=== PATIENT | male | born 1965 | race Caucasian/White ===

== ENCOUNTER 2021-05-13 12:30 | Emergency (ER) | payer BC ==
[2021-05-13 12:37] VITALS: BP 130/82; PULSE 77; RESP 16; TEMP 98.4
--- NOTE | 2021-05-13 13:06 | XR ---
EXAMINATION TYPE: XR finger LT DATE OF EXAM: 05/13/2021 COMPARISON: NONE HISTORY: Pain and swelling after recent freezing injury. TECHNIQUE: 3 views left second finger. FINDINGS: Displaced acute vertical fracture through distal portion of the second distal phalanx with 3 mm palmar surface distraction and approximately 3 to 4 mm distal ossific fragment. [id number] diffuse soft tissue swelling. Joint spaces are preserved. Incidental distal aspect third distal phalanx shows punctate densities favored within the nailbed but additional radial 1 mm punctate subcutaneous foreign body at level of the third DIP joint. IMPRESSION: As above.
[2021-05-13] MEDS ORDERED: ceFAZolin 1,000 MG VIAL (IM USE) IM STA (13:35)
--- NOTE | 2021-05-13 13:37 | ED ---
Upper Extremity HPI - General Chief Complaint: Extremity Injury, Upper Stated Complaint: [facility] - infected finger Time Seen by Provider: 05/13/21 12:38 Source: patient, RN notes reviewed Mode of arrival: ambulatory Limitations: no limitations - History of Present Illness Initial Comments: This 55-year-old male presents emergency department to complaint infection to his left hand index finger. This is been ongoing last 3 weeks was placed on Bactrim initially in which he states he responded very well with states never fully resolved and he did not initially follow-up. Patient follow-up was placed on clindamycin on Tuesday he's taking only a day and a half at doses and was seen again today sent in for possible IV antibiotics. Patient states that it's not worsening has no increasing pain he denies any trauma any time states his chronic deformities of his finger. - Related Data Home Medications Medication Instructions Recorded Confirmed No Known Home Medications 06/29/16 06/29/16 Allergies Allergy/AdvReac Type Severity Reaction Status Date / Time No Known Allergies Allergy Verified 05/13/21 12:37 Review of Systems ROS Statement: Those systems with pertinent positive or pertinent negative responses have been documented in the HPI. ROS Other: All systems not noted in ROS Statement are negative. Past Medical History Past Medical History: Pneumonia Additional Past Medical History / Comment(s): past hx. pneumonia several yrs. ago History of Any Multi-Drug Resistant Organisms: None Reported Additional Past Surgical History / Comment(s): Surgery to right knee. Past Anesthesia/Blood Transfusion Reactions: No Reported Reaction Past Psychological History: No Psychological Hx Reported Smoking Status: Current every day smoker Past Alcohol Use History: Occasional Past Drug Use History: Marijuana - Past Family History Father Family Medical History: No Reported History Mother Family Medical History: No Reported History General Exam Limitations: no limitations General appearance: alert, in no apparent distress Head exam: Present: atraumatic, normocephalic, normal inspection Respiratory exam: Present: normal lung sounds bilaterally. Absent: respiratory distress, wheezes, rales, rhonchi, stridor Cardiovascular Exam: Present: regular rate, normal rhythm, normal heart sounds. Absent: systolic murmur, diastolic murmur, rubs, gallop, clicks Extremities exam: Present: other (Left hand index finger there is chronic deformity there is no definite DIP joints there is a nail which is deformed. There is mild erythema, no tenderness neurovascular intact.) Course Vital Signs 05/13/21 12:33 Temperature 98.4 F Pulse Rate 77 Respiratory 16 Rate Blood Pressure 130/82 O2 Sat by Pulse 98 Oximetry Medical Decision Making - Medical Decision Making X-ray does not show any definite osteomyelitis. Patient's x-ray read as acute fracture though he had no trauma and patient states this is chronic deformity. Patient will be given Ancef, continuation of clindamycin 4 times daily with close follow-up. Disposition Clinical Impression: Paronychia of left index finger, Cellulitis of left index finger Disposition: HOME SELF-CARE Condition: Stable Instructions (If sedation given, give patient instructions): Cellulitis (ED) Additional Instructions: Please return to the Emergency Department if symptoms worsen or any other concerns. Is patient prescribed a controlled substance at d/c from ED?: No Referrals: None,Stated [Primary Care Provider] - 1-2 days Time of Disposition: 13:37
== END 2021-05-13 14:28 | disposition home or self-care (01) ==
LOC: EC 12:30
DX: L03.012 Cellulitis of left finger (principal); F17.200 Nicotine dependence, unspecified, uncomplicated; F12.90 Cannabis use, unspecified, uncomplicated
CPT/HCPCS: 99283; 96372; 73140; J0690

== ENCOUNTER 2023-08-17 08:55 | Emergency (ER) | payer BC ==
--- NOTE | 2023-08-17 09:26 | ED ---
General Adult HPI - General Stated complaint: R Hand Swelling Time Seen by Provider: 08/17/23 09:25 Source: patient, RN notes reviewed Mode of arrival: ambulatory Limitations: no limitations - History of Present Illness Initial comments: 57-year-old male presents emergency Department chief complaint of right hand infection. Patient states he cut his hand with a knife while he was cutting a deer. Patient states he was infection several weeks he states is more swollen - Related Data Home Medications Medication Instructions Recorded Confirmed clindamycin HCL [Clindamycin HCl] 300 mg PO Q6H 05/13/21 05/13/21 Previous Rx's Medication Instructions Recorded clindamycin HCL 300 mg PO QID #40 cap 08/17/23 Allergies Allergy/AdvReac Type Severity Reaction Status Date / Time No Known Allergies Allergy Verified 08/17/23 09:26 Review of Systems ROS Statement: Those systems with pertinent positive or pertinent negative responses have been documented in the HPI. ROS Other: All systems not noted in ROS Statement are negative. Past Medical History Past Medical History: Pneumonia Additional Past Medical History / Comment(s): past hx. pneumonia several yrs. ago History of Any Multi-Drug Resistant Organisms: None Reported Additional Past Surgical History / Comment(s): Surgery to right knee. Past Anesthesia/Blood Transfusion Reactions: No Reported Reaction Past Psychological History: No Psychological Hx Reported Smoking Status: Current every day smoker Past Alcohol Use History: Occasional Past Drug Use History: Marijuana - Past Family History Father Family Medical History: No Reported History Mother Family Medical History: No Reported History General Exam - General Exam Comments Initial Comments: Visual Physical Exam Vital signs reviewed General: Well-appearing, nontoxic, no acute distress. Head: Normocephalic, atraumatic Eyes: PERRLA, EOMI ENT: Airway patent Chest: Nonlabored breathing Skin: No visual rash, normal skin tone Neuro: Alert and oriented 3 Musculoskeletal: No gross abnormalities General appearance: alert, in no apparent distress Head exam: Present: atraumatic, normocephalic, normal inspection Respiratory exam: Present: normal lung sounds bilaterally. Absent: respiratory distress, wheezes, rales, rhonchi, stridor Cardiovascular Exam: Present: regular rate, normal rhythm, normal heart sounds. Absent: systolic murmur, diastolic murmur, rubs, gallop, clicks Extremities exam: Present: other (right hand swelling, there is a cut on 4th digit, full range of motion all digits neurovascular intact there is chronic deformities of the distal tips.) Course Vital Signs 08/17/23 08/17/23 09:23 12:59 Temperature 98 F 100.5 F H Pulse Rate 70 78 Respiratory 18 18 Rate Blood Pressure 116/69 143/83 O2 Sat by Pulse 98 96 Oximetry Medical Decision Making - Medical Decision Making I completed the quick note portion of this chart signed Carlyle Askew PA-C Was pt. sent in by a medical professional or institution (KADY Garibay, PAPER BAG MACHINE OPERATOR, urgent care, hospital, or snf...) When possible be specific @ -No Did you speak to anyone other than the patient for history (EMS, parent, family, police, friend...)? What history was obtained from this source @ -No Did you review nursing and triage notes (agree or disagree)? Why? @ -I reviewed and agree with nursing and triage notes Were old charts reviewed (outside hosp., previous admission, EMS record, old EKG, old radiological studies, urgent care reports/EKG's, snf records)? Report findings @ -No old charts were reviewed Differential Diagnosis (chest pain, altered mental status, abdominal pain women, abdominal pain men, vaginal bleeding, weakness, fever, dyspnea, syncope, headache, dizziness, GI bleed, back pain, seizure, CVA, palpatations, mental health, musculoskeletal)? @ -and cellulitis, laceration, flexor tendons cellulitis EKG interpreted by me (3pts min.). @ -none X-rays interpreted by me (1pt min.). @ -x-ray right hand showing soft tissue swelling no foreign body or bony errosion CT interpreted by me (1pt min.). @ -None done U/S interpreted by me (1pt. min.). @ -None done What testing was considered but not performed or refused? (CT, X-rays, U/S, labs)? Why? @ -None What meds were considered but not given or refused? Why? @ -None Did you discuss the management of the patient with other professionals (professionals i.e. KADY Garibay, PAPER BAG MACHINE OPERATOR, lab, RT, psych nurse, social secretary, gear and spline grinder, teacher, loan officer assistant, child welfare caseworker)? Give summary @ -No Was smoking cessation discussed for >3mins.? @ -No Was critical care preformed (if so, how long)? @ -No Were there social determinants of health that impacted care today? How? (Homelessness, low income, unemployed, alcoholism, drug addiction, transportation, low edu. Level, literacy, decrease access to med. care, longterm, rehab)? @ -No Was there de-escalation of care discussed even if they declined (Discuss DNR or withdrawal of care, Hospice)? DNR status @ -No What co-morbidities impacted this encounter? (DM, HTN, Smoking, COPD, CAD, Cancer, CVA, ARF, Chemo, Hep., AIDS, mental health diagnosis, sleep apnea, morbid obesity)? @ -None Was patient admitted / discharged? Hospital course, mention meds given and route, prescriptions, significant lab abnormalities, going to OR and other pertinent info. @ -discharge patient was offered admission patient feels comfortable with discharged with oral antibiotics and close follow-up return parameters were discussed. Undiagnosed new problem with uncertain prognosis? @ -No Drug Therapy requiring intensive monitoring for toxicity (Heparin, Nitro, Insulin, Cardizem)? @ -No Were any procedures done? @ -No Diagnosis/symptom? @ -right hand cellulitis] Acute, or Chronic, or Acute on Chronic? @ -acute Uncomplicated (without systemic symptoms) or Complicated (systemic symptoms)? @ -[uncomplicated Side effects of treatment? @ -No Exacerbation, Progression, or Severe Exacerbation? @ -No Poses a threat to life or bodily function? How? (Chest pain, [place], [place], pneumonia, PE, COPD, DKA, ARF, appy, cholecystitis, CVA, Diverticulitis, Homicidal, Suicidal, threat to staff... and all critical care pts) @ -No - Lab Data Result diagrams: 08/17/23 09:08/17/23 09:27 Lab Results 08/17/23 08/17/23 08/17/23 Range/Units : 09: 09: WBC 16.2 H (3.8-10.6) k/uL RBC 4.49 (4.30-5.90) m/uL Hgb 14.2 (13.0-17.5) gm/dL Hct 43.1 (39.0-53.0) % MCV 95.9 (80.0-100.0) fL MCH 31.6 (25.0-35.0) pg MCHC 33.0 (31.0-37.0) g/dL RDW 12.8 (11.5-15.5) % Plt Count 294 (150-450) k/uL MPV 7.7 Neutrophils % 94 % Lymphocytes % 3 % Monocytes % 3 % Eosinophils % 0 % Basophils % 0 % Neutrophils # 15.2 H (1.3-7.7) k/uL Lymphocytes # 0.4 L (1.0-4.8) k/uL Monocytes # 0.5 (0-1.0) k/uL Eosinophils # 0.1 (0-0.7) k/uL Basophils # 0.0 (0-0.2) k/uL Sodium 138 (137-145) mmol/L Potassium 4.3 (3.5-5.1) mmol/L Chloride 102 (98-107) mmol/L Carbon Dioxide 22 (22-30) mmol/L Anion Gap 14 mmol/L BUN 14 (9-20) mg/dL Creatinine 0.61 L (0.66-1.25) mg/dL Est GFR (CKD-EPI)AfAm >90 (>60 ml/min/1.73 sqM) Est GFR (CKD-EPI)NonAf >90 (>60 ml/min/1.73 sqM) Glucose 119 H (74-99) mg/dL Plasma Lactic Acid Kt 1.7 (0.7-2.0) mmol/L Calcium 9.6 (8.4-10.2) mg/dL Total Bilirubin 1.1 (0.2-1.3) mg/dL AST 24 (17-59) U/L ALT 18 (4-49) U/L Alkaline Phosphatase 67 (38-126) U/L C-Reactive Protein 4.5 H (<1.0) mg/dL Total Protein 7.0 (6.3-8.2) g/dL Albumin 4.1 (3.5-5.0) g/dL Disposition Clinical Impression: Cellulitis of right hand Disposition: HOME SELF-CARE Condition: Stable Instructions (If sedation given, give patient instructions): Cellulitis (ED) Additional Instructions: Please return to the Emergency Department if symptoms worsen or any other concerns. Prescriptions: clindamycin HCL 300 mg PO QID #40 cap Is patient prescribed a controlled substance at d/c from ED?: No Referrals: None,Stated [Primary Care Provider] - 1-2 days Time of Disposition: 11:24
[2023-08-17 09:40] VITALS: RESP 18
--- NOTE | 2023-08-17 09:57 | XR ---
EXAMINATION TYPE: XR hand complete RT DATE OF EXAM: 08/17/2023 9:49 AM CLINICAL INDICATION:Male, 57 years old with history of pain; [facility] COMPARISON: None TECHNIQUE: XR hand complete RT Frontal, lateral and oblique views were obtained. FINDINGS: Normal alignment of the visualized joints. No acute osseous pathology is identified. Soft tissue edema throughout the hand. No radiopaque foreign bodies. IMPRESSION: Soft tissue swelling without acute osseous pathology. Correlate for cellulitis.
[2023-08-17 10:12] LABS: Basophils % (A) 0 %; Eosinophils # (A) 0.1 k/uL (0-0.7); Eosinophils % (A) 0 %; HCT 43.1 % (39.0-53.0); HGB 14.2 gm/dL (13.0-17.5); Lymphocytes # (A) 0.4 k/uL (1.0-4.8); Lymphocytes % (A) 3 %; MCH 31.6 pg (25.0-35.0); MCV 95.9 fL (80.0-100.0); Mean Platelet Volume 7.7; Monocytes # (A) 0.5 k/uL (0-1.0); Monocytes % (A) 3 %; Neutrophils # (A) 15.2 k/uL (1.3-7.7); Neutrophils % (A) 94 %; Platelet Count 294 k/uL (150-450); RBC 4.49 m/uL (4.30-5.90); RDW 12.8 % (11.5-15.5); WBC 16.2 k/uL (3.8-10.6)
[2023-08-17 10:27] LABS: ALT 18 U/L (4-49); AST 24 U/L (17-59); African American GFR (CKD) >90 (>60 ml/min/1.73 sqM); Albumin 4.1 g/dL (3.5-5.0); Alkaline Phosphatase 67 U/L (38-126); Anion Gap 14 mmol/L; Blood Urea Nitrogen 14 mg/dL (9-20); Calcium 9.6 mg/dL (8.4-10.2); Carbon Dioxide 22 mmol/L (22-30); Chloride 102 mmol/L (98-107); Glucose 119 mg/dL (74-99); Non-African American GFR(CKD) >90 (>60 ml/min/1.73 sqM); Potassium 4.3 mmol/L (3.5-5.1); Sodium 138 mmol/L (137-145); Total Bilirubin 1.1 mg/dL (0.2-1.3)
[2023-08-17 10:42] LABS: C Reactive Protein 4.5 mg/dL (<1.0)
[2023-08-17] MEDS ORDERED: KETOROLAC 15 MG/ML 1 ML VIAL IVP STA (10:48)
[2023-08-17 13:05] VITALS: BP 143/83; PULSE 78; TEMP 100.5
== END 2023-08-17 13:05 | disposition home or self-care (01) ==
LOC: EC 08:55
DX: L03.113 Cellulitis of right upper limb (principal); F12.90 Cannabis use, unspecified, uncomplicated; F17.200 Nicotine dependence, unspecified, uncomplicated
CPT/HCPCS: 36415; 80053; 83605; 85025; 86140; 73130; 99284; 96365; 96375; J0690; J1885

== ENCOUNTER 2023-08-18 06:52 | Inpatient (IN) | payer BC ==
[2023-08-18] MEDS ORDERED: VANCOMYCIN IV PER PHARMACY 1 EACH MISC MISCELLANE PRN (11:47)
[2023-08-18] MEDS ORDERED: VANCOMYCIN 1,250 MG in SODIUM CHLORIDE 0.9% 250 ML IVPB STA (11:50)
--- NOTE | 2023-08-18 12:15 | ED ---
General Adult HPI - General Chief complaint: Skin/Abscess/Foreign Body Stated complaint: Right Hand Infection and swelling Time Seen by Provider: 08/18/23 11:14 Source: patient, RN notes reviewed Mode of arrival: ambulatory Limitations: no limitations - History of Present Illness Initial comments: 57-year-old male with no significant past medical history presents the emergency department with a chief complaint of right hand swelling. Patient reports that he was seen and evaluated on 08/1003/10/2023 at this facility. Given IV antibiotics and had laboratory studies which were unremarkable. He was discharged. He reports overnight worsening swelling and redness to his right hand that is migrating up his right wrist. He denies any trauma or injury. Denies any weakness, numbness tingling. He reports symptoms started after he attempted to go hunting. - Related Data Previous Rx's Medication Instructions Recorded clindamycin HCL 300 mg PO QID #40 cap 08/17/23 Allergies Allergy/AdvReac Type Severity Reaction Status Date / Time No Known Allergies Allergy Verified 08/18/23 13:24 Review of Systems ROS Statement: Those systems with pertinent positive or pertinent negative responses have been documented in the HPI. ROS Other: All systems not noted in ROS Statement are negative. Past Medical History Past Medical History: Pneumonia Additional Past Medical History / Comment(s): past hx. pneumonia several yrs. ago History of Any Multi-Drug Resistant Organisms: None Reported Additional Past Surgical History / Comment(s): Surgery to right knee. Past Anesthesia/Blood Transfusion Reactions: No Reported Reaction Past Psychological History: No Psychological Hx Reported Smoking Status: Current every day smoker Past Alcohol Use History: Occasional Past Drug Use History: Marijuana - Past Family History Father Family Medical History: No Reported History Mother Family Medical History: No Reported History General Exam - General Exam Comments Initial Comments: General: Alert, in no acute distress Head: atraumatic normocephalic. Eyes PERRL, EOMI intact, mucous membranes moist Respiratory: Lungs clear to auscultation bilaterally Cardiovascular: Heart rate regular rate and rhythm Abdominal: Soft without guarding or rebound Extremities: Normal inspection with full range of motion and normal capillary refill, right hand with generalized edema and erythema. Warm to touch. 2+ radial pulses. Limited range of motion secondary to swelling no crepitus Neuroogic: alert and oriented 3, CN II-XII intact, able to ambulate with steady gait Skin: warm dry and intact with normal color Limitations: no limitations Course Vital Signs 08/18/23 08/18/23 06:59 13:40 Temperature 98.3 F 98.1 F Pulse Rate 112 H 70 Respiratory 20 18 Rate Blood Pressure 150/73 101/63 O2 Sat by Pulse 98 97 Oximetry - Reevaluation(s) Reevaluation #1: 08/18/23 11:45 patient reevaluated in the waiting room. Patient agreeable for additional lab work and imaging. Patient aware need for IV antibiotics. Agreeable with this plan. Reevaluation #2: 08/18/23 13:01 Reevaluated and updated on results. Agreeable with the plan for admission. Reevaluation #3: 08/18/23 13:09 This is discussed with Dr. richardson, EMS who agrees and accepts the patient. He recommends switching Zosyn to cefepime. Medical Decision Making - Medical Decision Making Was pt. sent in by a medical professional or institution (, PA, STEREOPTICIAN, urgent care, hospital, or [facility]...) When possible be specific @ -[No] Did you speak to anyone other than the patient for history (EMS, parent, family, police, friend...)? What history was obtained from this source @ -[No] Did you review nursing and triage notes (agree or disagree)? Why? @ -[I reviewed and agree with nursing and triage notes] Were old charts reviewed (outside hosp., previous admission, EMS record, old EKG, old radiological studies, urgent care reports/EKG's, [facility] records)? Report findings @ -[No old charts were reviewed] Differential Diagnosis (chest pain, altered mental status, abdominal pain women, abdominal pain men, vaginal bleeding, weakness, fever, dyspnea, syncope, headache, dizziness, GI bleed, back pain, seizure, CVA, palpatations, mental health, musculoskeletal)? @ -[not applicable] EKG interpreted by me (3pts min.). @ -[As above] X-rays interpreted by me (1pt min.). @ Right hand x-ray did not reveal any free air or fracture dislocation CT interpreted by me (1pt min.). @ -[None done] U/S interpreted by me (1pt. min.). @ -[None done] What testing was considered but not performed or refused? (CT, X-rays, U/S, labs)? Why? @ -[None] What meds were considered but not given or refused? Why? @ -[None] Did you discuss the management of the patient with other professionals (professionals i.e. , PA, STEREOPTICIAN, lab, RT, psych nurse, social sciences instructor, driver/refuse collector, teacher, air control/anti air warfare officer, test case developer)? Give summary @ -Case discussed with Dr. Richardson who agrees and accepts the patient for admission with consult to Hand and Infectious disease. Was smoking cessation discussed for >3mins.? @ -[No] Was critical care preformed (if so, how long)? @ -[No] Were there social determinants of health that impacted care today? How? (Homelessness, low income, unemployed, alcoholism, drug addiction, transportation, low edu. Level, literacy, decrease access to med. care, snf, rehab)? @ -[No] Was there de-escalation of care discussed even if they declined (Discuss DNR or withdrawal of care, Hospice)? DNR status @ -[No] What co-morbidities impacted this encounter? (DM, HTN, Smoking, COPD, CAD, Cancer, CVA, ARF, Chemo, Hep., AIDS, mental health diagnosis, sleep apnea, morbid obesity)? @ -[None] Was patient admitted / discharged? Hospital course, mention meds given and route, prescriptions, significant lab abnormalities, going to OR and other pertinent info. @ -Herald. This is a 57-year-old male who presents the emergency department with a chief complaint of right hand swelling. Patient had a thorough history and physical exam performed. Patient is afebrile. Right hand with generalized edema, erythema that is warm to the touch. Limited range of motion secondary to swelling. There is slight erythema migrating up to right wrist. Patient had laboratory studies which revealed WBC 21.8, hemoglobin 12.7 lactic acid 1.9. Blood cultures are pending. Patient updated on results and agreeable with the plan for admission. He willl be started on vancomycin and cefepime per Dr. richardson. Consult was made to Dr. Arellano and Dr. Epperson, infectious disease. Case is discussed with Dr. Pizano, ED attending who agrees with POC. Undiagnosed new problem with uncertain prognosis? @ -[No] Drug Therapy requiring intensive monitoring for toxicity (Heparin, Nitro, Insulin, Cardizem)? @ -[No] Were any procedures done? @ -[No] Diagnosis/symptom? @ -Right hand swelling Acute, or Chronic, or Acute on Chronic? @ -[Acute Uncomplicated (without systemic symptoms) or Complicated (systemic symptoms)? @ -Complicated Side effects of treatment? @ -[No] Exacerbation, Progression, or Severe Exacerbation? @ -[No] Poses a threat to life or bodily function? How? (Chest pain, [place], [place], pneumonia, PE, COPD, DKA, ARF, appy, cholecystitis, CVA, Diverticulitis, Homicidal, Suicidal, threat to staff... and all critical care pts) @ -Yes, Cellulitis - Lab Data Result diagrams: 08/18/23 12:16 08/18/23 12:16 Lab Results 08/18/23 08/18/23 08/18/23 Range/Units 12:16 12:16 12:16 WBC 21.8 H (3.8-10.6) k/uL RBC 3.92 L (4.30-5.90) m/uL Hgb 12.7 L (13.0-17.5) gm/dL Hct 37.4 L (39.0-53.0) % MCV 95.2 (80.0-100.0) fL MCH 32.3 (25.0-35.0) pg MCHC 33.9 (31.0-37.0) g/dL RDW 12.9 (11.5-15.5) % Plt Count 225 (150-450) k/uL MPV 7.4 Neutrophils % 95 % Lymphocytes % 3 % Monocytes % 1 % Eosinophils % 1 % Basophils % 0 % Neutrophils # 20.6 H (1.3-7.7) k/uL Lymphocytes # 0.6 L (1.0-4.8) k/uL Monocytes # 0.3 (0-1.0) k/uL Eosinophils # 0.2 (0-0.7) k/uL Basophils # 0.0 (0-0.2) k/uL Sodium 136 L (137-145) mmol/L Potassium 3.8 (3.5-5.1) mmol/L Chloride 100 (98-107) mmol/L Carbon Dioxide 23 (22-30) mmol/L Anion Gap 13 mmol/L BUN 19 (9-20) mg/dL Creatinine 0.63 L (0.66-1.25) mg/dL Est GFR (CKD-EPI)AfAm >90 (>60 ml/min/1.73 sqM) Est GFR (CKD-EPI)NonAf >90 (>60 ml/min/1.73 sqM) Glucose 162 H (74-99) mg/dL Plasma Lactic Acid Kt 1.9 (0.7-2.0) mmol/L Calcium 10.0 (8.4-10.2) mg/dL Total Bilirubin 1.1 (0.2-1.3) mg/dL AST 24 (17-59) U/L ALT 20 (4-49) U/L Alkaline Phosphatase 65 (38-126) U/L Total Protein 6.7 (6.3-8.2) g/dL Albumin 3.9 (3.5-5.0) g/dL Disposition Clinical Impression: Cellulitis of right hand Disposition: ADMITTED IP TO THIS HOSP Condition: Fair Is patient prescribed a controlled substance at d/c from ED?: No Time of Disposition: 13:06
--- NOTE | 2023-08-18 12:33 | XR ---
EXAMINATION TYPE: XR hand complete RT, XR wrist complete RT DATE OF EXAM: 08/18/2023 12:16 PM CLINICAL INDICATION:Male, 57 years old with history of cellulitis; COMPARISON: 08/17/2023. TECHNIQUE: XR hand complete RT, XR wrist complete RT Frontal, lateral and oblique views were obtained . FINDINGS/IMPRESSION: Soft tissue swelling without evidence for radiopaque foreign body or fracture. Correlate for sinusiti s. No osseous erosion. Findings not definitely changed from one day prior.
[2023-08-18 12:39] LABS: Basophils % (A) 0 %; Eosinophils # (A) 0.2 k/uL (0-0.7); Eosinophils % (A) 1 %; HCT 37.4 % (39.0-53.0); HGB 12.7 gm/dL (13.0-17.5); Lymphocytes # (A) 0.6 k/uL (1.0-4.8); Lymphocytes % (A) 3 %; MCH 32.3 pg (25.0-35.0); MCHC 33.9 g/dL (31.0-37.0); MCV 95.2 fL (80.0-100.0); Mean Platelet Volume 7.4; Monocytes # (A) 0.3 k/uL (0-1.0); Monocytes % (A) 1 %; Neutrophils # (A) 20.6 k/uL (1.3-7.7); Neutrophils % (A) 95 %; Platelet Count 225 k/uL (150-450); RBC 3.92 m/uL (4.30-5.90); RDW 12.9 % (11.5-15.5); WBC 21.8 k/uL (3.8-10.6)
[2023-08-18 12:50] LABS: ALT 20 U/L (4-49); AST 24 U/L (17-59); African American GFR (CKD) >90 (>60 ml/min/1.73 sqM); Albumin 3.9 g/dL (3.5-5.0); Alkaline Phosphatase 65 U/L (38-126); Anion Gap 13 mmol/L; Blood Urea Nitrogen 19 mg/dL (9-20); Carbon Dioxide 23 mmol/L (22-30); Chloride 100 mmol/L (98-107); Glucose 162 mg/dL (74-99); Non-African American GFR(CKD) >90 (>60 ml/min/1.73 sqM); Potassium 3.8 mmol/L (3.5-5.1); Sodium 136 mmol/L (137-145); Total Bilirubin 1.1 mg/dL (0.2-1.3); Total Protein 6.7 g/dL (6.3-8.2)
[2023-08-18] MEDS ORDERED: PIPERACILLIN-TAZOBACTAM 3.375 GM in SODIUM CHLORIDE 0.9% 100 ML IVPB STA (12:56)
[2023-08-18] MEDS ORDERED: CEFEPIME 2 GM in SODIUM CHLORIDE 0.9% 100 ML IVPB STA (13:09)
[2023-08-18] MEDS ORDERED: NALOXONE 0.4 MG/ML 1 ML VIAL IV PRN (13:10)
[2023-08-18] MEDS: SODIUM CHLORIDE 0.9% 1,000 ML IV SCH (13:18)
[2023-08-18] MEDS: KETOROLAC 15 MG/ML 1 ML VIAL IVP PRN (15:28)
--- NOTE | 2023-08-18 17:33 | P.HPIM ---
History of Present Illness This is a pleasant 57 years old male with no significant past medical history and he does not follow with PCP. He presents with redness and swelling of his right hand. Patient says that it happens about 2 weeks ago when he injured his right middle finger while he was climbing a tree, he thinks it was locally infected and he popped up couple times but over the last 2 days the swelling and redness was getting more severe and more progressive so he decided to come to the hospital. It's mildly painful right and has tried closed wound on the plantar surface of the right middle finger. No purulent discharge or discoloration. He has limitation of flexing his right hand fingers partly because of the infection and swelling. He denies any other specific complaints, no chest pain or dyspnea. He lives nicotine and he was counseled about within the nicotine patch but he declines. He drinks alcohol occasionally and no drugs. His vitals are stable Labs reviewed he has worsening leukocytosis 16,000 up to 21,000 today. Hemoglobin 12.7. Liver enzymes were unremarkable Right hand and wrist x-ray showing soft tissue swelling with no fracture. Patient started with IV vancomycin and cefepime with orthopedic and infectious disease team were consulted from emergency room Review of Systems Review of systems CONSTITUTIONAL: No fever, no malaise, no fatigue. HEENT: No recent visual problems or hearing problems. Denied any sore throat. CARDIOVASCULAR: No orthopnea, PND, no palpitations, no syncope. PULMONARY: No shortness of breath, no cough, no hemoptysis. GASTROINTESTINAL: No diarrhea, no nausea, no vomiting, no abdominal pain. Normoactive bowel sounds. NEUROLOGICAL: No headaches, no weakness, no numbness. HEMATOLOGICAL: Denies any bleeding or petechiae. GENITOURINARY: Denies any burning micturition, frequency, or urgency. MUSCULOSKELETAL/RHEUMATOLOGICAL: Denies any joint pain, swelling, or any muscle pain. ENDOCRINE: Denies any polyuria or polydipsia. Past Medical History Past Medical History: Pneumonia Additional Past Medical History / Comment(s): past hx. pneumonia several yrs. ago History of Any Multi-Drug Resistant Organisms: None Reported Additional Past Surgical History / Comment(s): Surgery to right knee. Past Anesthesia/Blood Transfusion Reactions: No Reported Reaction Past Psychological History: No Psychological Hx Reported Smoking Status: Current every day smoker Past Alcohol Use History: Occasional Past Drug Use History: Marijuana - Past Family History Father Family Medical History: No Reported History Mother Family Medical History: No Reported History Medications and Allergies Home Medications Medication Instructions Recorded Confirmed Type clindamycin HCL 300 mg PO QID #40 cap 08/17/23 08/18/23 Rx Allergies Allergy/AdvReac Type Severity Reaction Status Date / Time No Known Allergies Allergy Verified 08/18/23 13:24 Physical Exam Vitals: Vital Signs Temp Pulse Resp BP Pulse Ox 08/18/23 13:40 98.1 F 70 18 101/63 97 08/18/23 06:59 98.3 F 112 H 20 150/73 98 Intake and Output 08/17/23 08/18/23 08/18/23 22:59 06:59 14:59 Other: Weight 70.307 kg GENERAL: The patient is alert and oriented x3, not in any acute distress. Well developed, well nourished. HEENT: Pupils are round and equally reacting to light. EOMI. No scleral icterus. No conjunctival pallor. Normocephalic, atraumatic. No pharyngeal erythema. No thyromegaly. CARDIOVASCULAR: S1 and S2 present. No murmurs, rubs, or gallops. PULMONARY: Chest is clear to auscultation, no wheezing , no crackles. ABDOMEN: Soft, nontender, nondistended, normoactive bowel sounds. No palpable organomegaly. MUSCULOSKELETAL: No joint swelling or deformity. -EXTREMITIES: No cyanosis, clubbing, or pedal edema. Right hand and right forearm swollen red and tender with limitation of movement of the fingers NEUROLOGICAL: Gross neurological examination did not reveal any focal deficits. SKIN: No rashes. no petechiae. Results CBC & Chem 7: 08/18/23 12:16 08/18/23 12:16 Labs: Abnormal Lab Results - Last 24 Hours (Table) 08/18/23 08/18/23 Range/Units 12:16 12:16 WBC 21.8 H (3.8-10.6) k/uL RBC 3.92 L (4.30-5.90) m/uL Hgb 12.7 L (13.0-17.5) gm/dL Hct 37.4 L (39.0-53.0) % Neutrophils # 20.6 H (1.3-7.7) k/uL Lymphocytes # 0.6 L (1.0-4.8) k/uL Sodium 136 L (137-145) mmol/L Creatinine 0.63 L (0.66-1.25) mg/dL Glucose 162 H (74-99) mg/dL Assessment and Plan Assessment: Right hand and forearm cellulitis Nicotine dependence Plan: Continue with IV antibiotic, current of vancomycin and cefepime Follow-up blood culture results Infectious disease consult Orthopedic team consult Labs and medication were reviewed.. Continue same treatment. Continue with symptomatic treatment. Resume home medication. Monitor labs and vitals. DVT and GI prophylaxis. Further recommendations as per clinical course of the patient DVT prophylaxis: Subcutaneous heparin GI Prophylaxis: Pepcid PT/OT: Pending Prognosis is guarded
--- NOTE | 2023-08-18 18:37 | US ---
EXAMINATION TYPE: US venous doppler duplex UE RT DATE OF EXAM: 08/18/2023 COMPARISON: NONE CLINICAL INDICATION: Male, 57 years old with history of Redness and swelling; Cellulitis in right for earm/hand. Redness and pain. No hx of DVT. Not on blood thinners SIDE PERFORMED: Right TECHNIQUE: Grayscale, color doppler, spectral doppler imaging performed of the deep veins of the uppe r extremities. Right Arm: There is normal flow, compressibility and vascular waveforms. No evidence for DVT IMPRESSION: No evidence for DVT within the right upper extremity.
[2023-08-18] MEDS: AMPICILLIN-SULBACTAM 3 GM in SODIUM CHLORIDE 0.9% 100 ML IVPB SCH ×2 (19:11→23:48)
[2023-08-18] MEDS: ACETAMINOPHEN TAB 325 MG TAB PO PRN (20:04)
[2023-08-18] MEDS: VANCOMYCIN 1,250 MG in SODIUM CHLORIDE 0.9% 250 ML IVPB SCH (20:05)
--- NOTE | 2023-08-18 23:25 | P.CONS ---
History of Present Illness - Reason for Consult Consult date: 08/18/23 Cellulitis Requesting physician: Jing Velasquez - Chief Complaint Right middle finger pain and swelling times few days - History of Present Illness Patient is a 57-year-old male with a past medical history Significant for pneumonia current everyday smoker patient apparently did develop an injury to the right middle finger when he was trying to climb a tree while out hunting patient mentioned subsequently he noticed to have increasing swelling some drainage patient has been using soaking in Epsom salt to help heal his right middle finger patient mention he did have improvement and that it would get worse and get better this cycle has been going on however for the last few days the patient noticed to have increasing swelling to the right hand and has become more painful patient describes the pain to be sharp throbbing moderate to severe intensity and extending to his forearm with associated swelling redness and did have some drainage from the right middle finger with the symptoms the patient was evaluated on presentation to the hospital the patient was afebrile did have a low-grade fever of 99.1 degrees for hide this afternoon patient was not tachycardic or hypotensive did have white count 21.8 creatinine 0.63 patient did have x-ray of the hand soft tissue swelling without evidence for radiopaque foreign body or fracture patient was started on vancomycin infectious disease was consulted for further management of antibiotic therapy Review of Systems Positive point and negatives has been mentioned in the HPI, complete review of systems was performed and all other systems are negative Past Medical History Past Medical History: Pneumonia Additional Past Medical History / Comment(s): past hx. pneumonia several yrs. ago History of Any Multi-Drug Resistant Organisms: None Reported Additional Past Surgical History / Comment(s): Laproscopic Surgery to right knee. Past Anesthesia/Blood Transfusion Reactions: No Reported Reaction Past Psychological History: No Psychological Hx Reported Smoking Status: Current every day smoker Past Alcohol Use History: Occasional Additional Past Alcohol Use History / Comment(s): Has smoked 1/2PPD for 20 yrs. Currently "vapes occasionally". Past Drug Use History: None Reported, Marijuana Additional Drug Use History / Comment(s): Marijuana use about twice weekly. - Past Family History Father Family Medical History: No Reported History Additional Family Medical History / Comment(s): in a car accident at age 62. No known medical history. Mother Family Medical History: No Reported History Additional Family Medical History / Comment(s): from Brain cancer Medications and Allergies Home Medications Medication Instructions Recorded Confirmed Type cefTRIAXone [Rocephin] 2,000 mg IVP Q24HR #15 each 08/23/23 Rx metroNIDAZOLE [Flagyl] 500 mg PO TID #45 tab 08/23/23 Rx Acetaminophen Tab [Tylenol] 650 mg PO Q6HR PRN tab 08/24/23 Rx Ondansetron [Zofran] 4 mg PO Q8HR PRN 3 Days #12 tab 08/24/23 Rx Sennosides-Docusate Sodium 2 each PO HS PRN 10 Days #20 tab 08/24/23 Rx [Senokot-S] Allergies Allergy/AdvReac Type Severity Reaction Status Date / Time No Known Allergies Allergy Verified 08/18/23 13:24 Physical Exam Vitals: Vital Signs Temp Pulse Pulse Resp BP BP Pulse Ox 08/18/23 15:21 99.1 F 66 18 122/72 97 08/18/23 13:40 98.1 F 70 18 101/63 97 08/18/23 06:59 98.3 F 112 H 20 150/73 98 Intake and Output 08/18/23 08/18/23 08/18/23 06:59 14:59 22:59 Other: Voiding Method Toilet Weight 70.307 kg 70.307 kg GENERAL DESCRIPTION: Middle-aged male lying in bed, no distress. No tachypnea or accessory muscle of respiration use. HEENT: Shows Pallor , no scleral icterus. Oral mucous membrane is dry. No pharyngeal erythema or thrush NECK: Trachea central, no thyromegaly. LUNGS: Unlabored breathing. Clear to auscultation anteriorly. No wheeze or crackle. HEART: S1, S2, regular rate and rhythm. No loud murmur ABDOMEN: Soft, no tenderness , guarding or rigidity, no organomegaly EXTREMITIES: Right middle finger significant swelling and redness which is spreading to the dorsum aspect of the right hand and forearm did have a some purulent drainage which was cultured SKIN: No rash, no masses palpable. NEUROLOGICAL: The patient is awake, alert, oriented x3, mood and affect normal. Results CBC & Chem 7: 08/23/23 12:05 08/23/23 12:05 Labs: Abnormal Lab Results - Last 24 Hours (Table) 08/18/23 08/18/23 Range/Units 12:16 12:16 WBC 21.8 H (3.8-10.6) k/uL RBC 3.92 L (4.30-5.90) m/uL Hgb 12.7 L (13.0-17.5) gm/dL Hct 37.4 L (39.0-53.0) % Neutrophils # 20.6 H (1.3-7.7) k/uL Lymphocytes # 0.6 L (1.0-4.8) k/uL Sodium 136 L (137-145) mmol/L Creatinine 0.63 L (0.66-1.25) mg/dL Glucose 162 H (74-99) mg/dL Assessment and Plan (1) Abscess of finger of right hand Status: Acute Code(s): L02.511 - CUTANEOUS ABSCESS OF RIGHT HAND SNOMED Code(s): 65907073901431198 (2) Cellulitis of right hand Status: Acute Code(s): L03.113 - CELLULITIS OF RIGHT UPPER LIMB SNOMED Code(s): 74062801765846261 Plan: 1-patient presented to hospital with increasing pain swelling redness to the right middle finger in this patient was noticed to have a purulent drainage from a small puncture wound on the middle phalanx of the right middle finger on the palmar aspect with some foul-smelling drainage concerning for possible polymicrobial abscess 2-aerobic and anaerobic culture has been obtained to guide further antibiotic therapy 3-await hand surgery evaluation and further drainage procedure and deep culture 4-patient to continue with the vancomycin pharmacy to dose while watching his kidney function closely however we will add Unasyn 3 g every 6 hours We will follow on clinical condition and cultures to further adjust medication if needed Thank you for this consultation we will follow the patient along with you Dictation was produced using [employer] dictation software. please excuse any grammatical, word or spelling errors. Time with Patient: Greater than 30
[2023-08-19] MEDS: KETOROLAC 15 MG/ML 1 ML VIAL IVP PRN (01:36)
[2023-08-19] MEDS: SODIUM CHLORIDE 0.9% 1,000 ML IV SCH ×2 (02:41→08:36)
[2023-08-19] MEDS: VANCOMYCIN 1,250 MG in SODIUM CHLORIDE 0.9% 250 ML IVPB SCH ×3 (04:26→20:32)
[2023-08-19] MEDS: AMPICILLIN-SULBACTAM 3 GM in SODIUM CHLORIDE 0.9% 100 ML IVPB SCH ×4 (06:26→23:22)
[2023-08-19 10:12] LABS: Basophils % (A) 0 %; Eosinophils # (A) 0.1 k/uL (0-0.7); Eosinophils % (A) 0 %; HCT 40.5 % (39.0-53.0); HGB 13.4 gm/dL (13.0-17.5); Lymphocytes # (A) 0.6 k/uL (1.0-4.8); Lymphocytes % (A) 4 %; MCH 31.8 pg (25.0-35.0); MCV 96.3 fL (80.0-100.0); Mean Platelet Volume 8.1; Monocytes # (A) 0.5 k/uL (0-1.0); Monocytes % (A) 3 %; Neutrophils # (A) 13.7 k/uL (1.3-7.7); Neutrophils % (A) 91 %; Platelet Count 237 k/uL (150-450); RBC 4.21 m/uL (4.30-5.90); RDW 12.9 % (11.5-15.5)
--- NOTE | 2023-08-19 13:29 | P.CNOR ---
History of Present Illness - [facility] Consult date: 08/19/23 Consult reason: other (RightHand pain, swelling.) History of present illness: Dustin is a 57-year-old male admitted to the hospital with cellulitis to his right hand. He states that back in mid-May he injured his right hand or climbing onto a tree stand. He states that his middle finger got pinched in the standard which did cause a blister. He had been soaking his hand with Epsom salt and felt that he had significant improvement in his hand. However, over the past several days he developed increased swelling to the middle finger and hand. He was seen in the emergency department and was given a dose of antibiotics and discharged on oral antibiotics. He returned to the emergency department yesterday with increased swelling and redness. He is admitted and is currently on IV vancomycin. He has been seen by infectious disease. We are consulted for orthopedic evaluation. White blood cell count on admission was 21.8. White blood cell count now is down to 15. CRP is 21.9. 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 Past Medical History Past Medical History: Pneumonia Additional Past Medical History / Comment(s): past hx. pneumonia several yrs. ago History of Any Multi-Drug Resistant Organisms: None Reported Additional Past Surgical History / Comment(s): Laproscopic Surgery to right knee. Past Anesthesia/Blood Transfusion Reactions: No Reported Reaction Past Psychological History: No Psychological Hx Reported Smoking Status: Current every day smoker Past Alcohol Use History: Occasional Additional Past Alcohol Use History / Comment(s): Has smoked 1/2PPD for 20 yrs. Currently "vapes occasionally". Past Drug Use History: None Reported, Marijuana Additional Drug Use History / Comment(s): Marijuana use about twice weekly. - Past Family History Father Family Medical History: No Reported History Additional Family Medical History / Comment(s): in a car accident at age 62. No known medical history. Mother Family Medical History: No Reported History Additional Family Medical History / Comment(s): from Brain cancer Medications and Allergies Home Medications Medication Instructions Recorded Confirmed Type clindamycin HCL 300 mg PO QID #40 cap 08/17/23 08/18/23 Rx Allergies Allergy/AdvReac Type Severity Reaction Status Date / Time No Known Allergies Allergy Verified 08/18/23 13:24 Physical Examination Osteopathic Statement: *. No significant issues noted on an osteopathic structural exam other than those noted in the History and Physical/Consult. This is a pleasant 57-year-old male in no acute distress. He is alert and oriented 3. Family is present at bedside. Exam of the right upper extremity reveals significant swelling and erythema to the right hand palmar and dorsal surface. There is a wound about the palmar surface of the middle finger near the DIP joint. There is no active drainage from the wound. There is chronic deformity noted to the middle and index finger nails.He is unable to fully extend the fingers. He has minimal pain with passive extension of the finger. He is unable to fully flex the fingers. He has minimal tenderness to palpation along the flexor tendon sheath. However, there is significant swelling in this area. There is some erythema extending up into the volar aspect of the forearm and elbow. Capillary refill is less than 3 seconds. Results X-rays show no acute bony abnormality or fracture. No obvious evidence of osteomyelitis. - Labs Labs: Abnormal Lab Results - Last 24 Hours (Table) 08/19/23 08/19/23 Range/Units 09:12 09:12 WBC 15.0 H (3.8-10.6) k/uL RBC 4.21 L (4.30-5.90) m/uL Neutrophils # 13.7 H (1.3-7.7) k/uL Lymphocytes # 0.6 L (1.0-4.8) k/uL C-Reactive Protein 21.9 H (<1.0) mg/dL H & H 08/18/23 08/19/23 Range/Units 12:16 09:12 Hgb 12.7 L 13.4 (13.0-17.5) gm/dL Hct 37.4 L 40.5 (39.0-53.0) % Result Diagrams: 08/21/23 06:45 08/20/23 04:55 Assessment and Plan (1) Cellulitis of right hand Current Visit: Yes Status: Acute Code(s): L03.113 - CELLULITIS OF RIGHT UPPER LIMB SNOMED Code(s): 39039148433692206 Plan: The clinical and x-ray findings are discussed with the patient and his family. We discussed the possibility of infection in the soft tissue versus flexor tendon sheath. He is not specifically tender in that region but does have swelling. I have initiated warm antibiotic soaks in warm compress. Continued IV antibiotics. I will see him in 24 hours to assess improvement. We tentatively have him scheduled for an I&D in surgery for tomorrow. patient seen and examined. He is quite stoic and has minimal TTP to the A1 hina of the MF and the wrist. He is also tolerativing passive extension of the finger even though it is stiff. However, given the swelling and appearance of the hand, he will need an I&D
[2023-08-19 16:27] LABS: Erythrocyte Sedimentation Rate 91 mm/Hr (0-20)
--- NOTE | 2023-08-19 18:54 | P.PN ---
Subjective This is a pleasant 57 years old male with no significant past medical history and he does not follow with PCP. He presents with redness and swelling of his right hand. Patient says that it happens about 2 weeks ago when he injured his right middle finger while he was climbing a tree, he thinks it was locally infected and he popped up couple times but over the last 2 days the swelling and redness was getting more severe and more progressive so he decided to come to the hospital. It's mildly painful right and has tried closed wound on the plantar surface of the right middle finger. No purulent discharge or discoloration. He has limitation of flexing his right hand fingers partly because of the infection and swelling. He denies any other specific complaints, no chest pain or dyspnea. He lives nicotine and he was counseled about within the nicotine patch but he declines. He drinks alcohol occasionally and no drugs. His vitals are stable Labs reviewed he has worsening leukocytosis 16,000 up to 21,000 today. Hemoglobin 12.7. Liver enzymes were unremarkable Right hand and wrist x-ray showing soft tissue swelling with no fracture. Patient started with IV vancomycin and cefepime with orthopedic and infectious disease team were consulted from emergency room 08/19/2023 patient right hand and forearm swelling and redness improving but still significantly abnormal. He had a fever of 100.1 yesterday. No more fever. Leukocytosis trending down to 15,000 Remains on IV Unasyn and vancomycin Possible I&D tomorrow with orthopedic team. There is no absolute contraindication from medical point of view to proceed with I&D of his right hand infection Review of systems CONSTITUTIONAL: No fever, no malaise, no fatigue. HEENT: No recent visual problems or hearing problems. Denied any sore throat. CARDIOVASCULAR: No orthopnea, PND, no palpitations, no syncope. PULMONARY: No shortness of breath, no cough, no hemoptysis. GASTROINTESTINAL: No diarrhea, no nausea, no vomiting, no abdominal pain. Normoactive bowel sounds. NEUROLOGICAL: No headaches, no weakness, no numbness. Active Medications Generic Name Dose Route Start Last Admin Trade Name Freq PRN Reason Stop Dose Admin Acetaminophen 650 mg 08/18/23 19:14 08/18/23 20:04 Acetaminophen Tab 325 Mg Tab PO 650 mg Q6HR PRN Administration Fever and/ or Pain Vancomycin HCl 1,250 mg/ 250 mls @ 125 mls/hr 08/18/23 21:00 08/19/23 13:17 Sodium Chloride IVPB 125 mls/hr Q8H EUSEBIA Administration Sodium Chloride 1,000 mls @ 75 mls/hr 08/18/23 13:15 08/19/23 08:36 Saline 0.9% IV 75 mls/hr .[id number] EUSEBIA Administration Ampicillin Sodium/Sulbactam 100 mls @ 200 mls/hr 08/18/23 18:30 08/19/23 17:54 Sodium 3 gm/ Sodium Chloride IVPB 200 mls/hr Q6HR EUSEBIA Administration Protocol Ketorolac Tromethamine 15 mg 08/18/23 13:10 08/19/23 01:36 Ketorolac 15 Mg/Ml 1 Ml Vial IVP 08/21/23 13:11 15 mg Q6HR PRN Administration Moderate Pain (Scale 4 to 6) Miscellaneous Information 0 each 08/19/23 20:00 Vancomycin Trough Due 1 Each Misc MISCELLANE 08/19/23 20:01 DIRECTED ONE Naloxone HCl 0.2 mg 08/18/23 13:10 Naloxone 0.4 Mg/Ml 1 Ml Vial IV Q2M PRN Opioid Reversal Objective - Vital Signs Vital signs: Vital Signs Temp 98.7 F 08/19/23 14:00 Pulse 90 08/19/23 14:00 Resp 16 08/19/23 14:00 BP 136/78 08/19/23 14:00 Pulse Ox 100 08/19/23 14:00 FiO2 Intake & Output 08/18/23 08/19/23 08/19/23 18:59 06:59 18:59 Intake Total 650 2390 Balance 650 2390 Weight 70.307 kg Intake: Intake, IV Titration 650 1600 Amount Cefepime 2 gm In Sodium 100 200 Chloride 0.9% 100 ml @ 200 mls/hr IVPB ONCE STA Rx#:[id number] Sodium Chloride 0.9% 1, 300 900 000 ml @ 75 mls/hr IV . [id number] EUSEBIA Rx#:[id number] Vancomycin 1,250 mg In 250 500 Sodium Chloride 0.9% 250 ml @ 125 mls/hr IVPB Q8H EUSEBIA Rx#:[id number] Oral 790 Other: Voiding Method Toilet Toilet # Voids 3 3 - Exam GENERAL: The patient is alert and oriented x3, not in any acute distress. Well developed, well nourished. HEENT: Pupils are round and equally reacting to light. EOMI. No scleral icterus. No conjunctival pallor. Normocephalic, atraumatic. No pharyngeal erythema. No thyromegaly. CARDIOVASCULAR: S1 and S2 present. No murmurs, rubs, or gallops. PULMONARY: Chest is clear to auscultation, no wheezing , no crackles. ABDOMEN: Soft, nontender, nondistended, normoactive bowel sounds. No palpable organomegaly. MUSCULOSKELETAL: No joint swelling or deformity. -EXTREMITIES: No cyanosis, clubbing, or pedal edema. Significant right hand and forearm swelling and redness and tenderness in addition of dictation of movement of his fingers NEUROLOGICAL: Gross neurological examination did not reveal any focal deficits. SKIN: No rashes. no petechiae. - Labs CBC & Chem 7: 08/19/23 09:12 08/18/23 12:16 Labs: Abnormal Lab Results - Last 24 Hours (Table) 08/19/23 08/19/23 Range/Units 09:12 09:12 WBC 15.0 H (3.8-10.6) k/uL RBC 4.21 L (4.30-5.90) m/uL Neutrophils # 13.7 H (1.3-7.7) k/uL Lymphocytes # 0.6 L (1.0-4.8) k/uL ESR 91 H (0-20) mm/Hr C-Reactive Protein 21.9 H (<1.0) mg/dL Microbiology - Last 24 Hours (Table) 08/18/23 12:16 Blood Culture - Preliminary Blood 08/18/23 12:16 Blood Culture - Preliminary Blood 08/18/23 18:00 Gram Stain - Preliminary Finger - Left Third Assessment and Plan Assessment: Right hand and forearm cellulitis Nicotine dependence Plan: Plan for OR tomorrow for I&D. From medical perspective there is no absolute contraindication and patient is an acceptable risk Continue with IV antibiotic, current of vancomycin and unasyn Follow-up blood culture results Infectious disease consult Orthopedic team consult Labs and medication were reviewed.. Continue same treatment. Continue with symptomatic treatment. Resume home medication. Monitor labs and vitals. DVT and GI prophylaxis. Further recommendations as per clinical course of the patient DVT prophylaxis: Subcutaneous heparin GI Prophylaxis: Pepcid PT/OT: Pending Prognosis is guarded
[2023-08-19] MEDS ORDERED: VANCOMYCIN TROUGH DUE 1 EACH MISC MISCELLANE ONE (20:00)
[2023-08-19] MEDS: ACETAMINOPHEN TAB 325 MG TAB PO PRN (23:24)
[2023-08-20] MEDS: SODIUM CHLORIDE 0.9% 1,000 ML IV SCH ×2 (03:04→17:56)
[2023-08-20] MEDS: VANCOMYCIN 1,250 MG in SODIUM CHLORIDE 0.9% 250 ML IVPB SCH (04:00)
[2023-08-20 05:43] LABS: African American GFR (CKD) >90 (>60 ml/min/1.73 sqM); Non-African American GFR(CKD) >90 (>60 ml/min/1.73 sqM)
[2023-08-20] MEDS: AMPICILLIN-SULBACTAM 3 GM in SODIUM CHLORIDE 0.9% 100 ML IVPB SCH ×4 (06:00→23:25)
--- NOTE | 2023-08-20 10:15 | P.PN ---
Subjective Progress Note Date: 08/20/23 Principal diagnosis: Cellulitis right hand. Possible flexor tenosynovitis right hand, middle finger. Dustin is a 57-year-old male admitted to the hospital with cellulitis to his r ight hand. He states that back in mid-May he injured his right hand or climbing onto a tree stand. He states that his middle finger got pinched in the standard which did cause a blister. He had been soaking his hand with Epsom salt and felt that he had significant improvement in his hand. However, over the past several days he developed increased swelling to the middle finger and hand. He was seen in the emergency department and was given a dose of antibiotics and discharged on oral antibiotics. He returned to the emergency department yesterday with increased swelling and redness. He is admitted and is currently on IV vancomycin. He has been seen by infectious disease. We are co nsulted for orthopedic evaluation. White blood cell count on admission was 21.8. White blood cell count now is down to 15. CRP is 21.9. 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 08/20/2023: The patient has no new complaints or concerns today. He has been doing warm soaks with Hibiclens to the right hand since yesterday. He states that he feels the redness is slightly improved but continues to have significant swelling. He reports minimal pain. Objective - Vital Signs Vital signs: Vital Signs Temp 98.8 F 08/20/23 07:47 Pulse 68 08/20/23 07:47 Resp 16 08/20/23 07:47 BP 135/70 08/20/23 07:47 Pulse Ox 93 L 08/20/23 07:47 FiO2 Intake & Output 08/19/23 08/20/23 08/20/23 18:59 06:59 18:59 Intake Total 1125 Balance 1125 Intake: Intake, IV Titration 1125 Amount Ampicillin-Sulbactam 3 gm 200 In Sodium Chloride 0.9% 100 ml @ 200 mls/hr IVPB Q6HR [facility] Rx#:[id number] Sodium Chloride 0.9% 1, 675 000 ml @ 75 mls/hr IV . [id number] [facility] Rx#:[id number] Vancomycin 1,250 mg In 250 Sodium Chloride 0.9% 250 ml @ 125 mls/hr IVPB Q8H [facility] Rx#:[id number] Other: Voiding Method Toilet Toilet # Voids 3 1 - Exam This is a pleasant 57-year-old male in no acute distress. He is alert and oriented 3. Exam of the right upper extremity reveals significant swelling and erythema to the right hand palmar and dorsal surface. There is a wound about the palmar surface of the middle finger near the DIP joint. There is no active drainage from the wound. There is chronic deformity noted to the middle and index finger nails.He is unable to fully extend the fingers. He has minimal pain with passive extension of the finger. He is unable to fully flex the fingers. He has minimal tenderness to palpation along the flexor tendon sheath. However, there is significant swelling in this area. There is some erythema extending up into the volar aspect of the forearm and elbow. Capillary refill is less than 3 seconds. - Labs CBC & Chem 7: 08/19/23 09:12 08/20/23 04:55 Labs: Abnormal Lab Results - Last 24 Hours (Table) 08/19/23 08/19/23 08/20/23 Range/Units 09:12 09:12 04:55 WBC 15.0 H (3.8-10.6) k/uL RBC 4.21 L (4.30-5.90) m/uL Neutrophils # 13.7 H (1.3-7.7) k/uL Lymphocytes # 0.6 L (1.0-4.8) k/uL ESR 91 H (0-20) mm/Hr Creatinine 0.56 L (0.66-1.25) mg/dL C-Reactive Protein 21.9 H (<1.0) mg/dL Microbiology - Last 24 Hours (Table) 08/18/23 18:00 Gram Stain - Preliminary Finger - Left Third Wound Culture - Preliminary Beta Hemolytic Strep Group C 08/18/23 12:16 Blood Culture - Preliminary Blood 08/18/23 12:16 Blood Culture - Preliminary Blood Assessment and Plan (1) Cellulitis of right hand Current Visit: Yes Status: Acute Code(s): L03.113 - CELLULITIS OF RIGHT UPPER LIMB SNOMED Code(s): 18892778882724572 Plan: The clinical findings are discussed with the patient and his family. It is recommended he undergo an I&D of the right hand today. The surgical procedures discussed in detail including the pulse and outcomes. After discussion and consideration the patient elects to proceed with surgical debridement and irrigation of the right hand.
[2023-08-20] MEDS ORDERED: MIDAZOLAM 2 MG/2 ML VIAL ONE (12:36)
[2023-08-20] MEDS ORDERED: fentaNYL (PF) 50 MCG/ML 2 ML AMP ONE (12:36)
[2023-08-20] MEDS ORDERED: ONDANSETRON 4 MG/2 ML VIAL ONE (12:36)
[2023-08-20] MEDS ORDERED: PROPOFOL 10 MG/ML 20 ML VIAL IV ONE (12:36)
[2023-08-20] MEDS ORDERED: LIDOCAINE 1% INJ 10MG/ML (20 ML MDV) ONE (12:36)
[2023-08-20] MEDS ORDERED: LACTATED RINGERS 1,000 ML IV ONE (12:39)
[2023-08-20] MEDS ORDERED: BUPIVACAINE (PF) 0.5% 30 ML VIAL SQ ONE (12:50)
[2023-08-20] MEDS ORDERED: LIDOCAINE 0.5%-EPI 1:200,000 50 ML VIAL SQ ONE (12:50)
[2023-08-20] MEDS ORDERED: ceFAZolin 3,000 MG in SODIUM CHLORIDE 0.9% IRRIGATIO 3,000 ML IRRIGATION ONE (13:03)
--- NOTE | 2023-08-20 13:12 | P.PN ---
Subjective Progress Note Date: 08/19/23 Principal diagnosis: Reason for follow-up is right middle finger abscess and hand cellulitis Patient is a 57-year-old male with a past medical history Significant for pneumonia current everyday smoker patient apparently did develop an injury to the right middle finger when he was trying to climb a tree while out hunting , patient now presented to hospital with worsening swelling redness to the right hand and right middle finger. On today's evaluation there is 08/19/2023, patient is afebrile this morning he is breathing comfortably on room air denies any chest pain shortness of breath or cough no nausea vomiting no abdominal pain or any worsening pain to the right middle finger or the right hand dorsum, no drainage. The patient white count is down to 15,000 patient did have a ESR of 91 CRP of 21.6 culture currently growing beta-hemolytic group C strep Objective - Vital Signs Vital signs: Vital Signs Temp 98.1 F 08/19/23 07:47 Pulse 73 08/19/23 07:47 Resp 17 08/19/23 07:47 BP 115/76 08/19/23 07:47 Pulse Ox 97 08/19/23 07:47 FiO2 Intake & Output 08/18/23 08/19/23 08/19/23 18:59 06:59 18:59 Intake Total 650 2390 Balance 650 2390 Weight 70.307 kg Intake: Intake, IV Titration 650 1600 Amount Cefepime 2 gm In Sodium 100 200 Chloride 0.9% 100 ml @ 200 mls/hr IVPB ONCE [facility] Rx#:[id number] Sodium Chloride 0.9% 1, 300 900 000 ml @ 75 mls/hr IV . [id number] [facility] Rx#:[id number] Vancomycin 1,250 mg In 250 500 Sodium Chloride 0.9% 250 ml @ 125 mls/hr IVPB Q8H [facility] Rx#:[id number] Oral 790 Other: Voiding Method Toilet Toilet # Voids 3 - Exam GENERAL DESCRIPTION: Middle-age male lying in bed in no distress RESPIRATORY SYSTEM: Unlabored breathing , decreased breath sounds at bases HEART: S1 S2 regular rate and rhythm , ABDOMEN: Soft , no tenderness EXTREMITIES: Right middle finger and right hand still have significant swelling redness no drainage was noticed - Labs CBC & Chem 7: 08/19/23 09:12 08/20/23 04:55 Labs: Abnormal Lab Results - Last 24 Hours (Table) 08/19/23 08/19/23 Range/Units 09:12 09:12 WBC 15.0 H (3.8-10.6) k/uL RBC 4.21 L (4.30-5.90) m/uL Neutrophils # 13.7 H (1.3-7.7) k/uL Lymphocytes # 0.6 L (1.0-4.8) k/uL C-Reactive Protein 21.9 H (<1.0) mg/dL Assessment and Plan (1) Abscess of finger of right hand Current Visit: Yes Status: Acute Code(s): L02.511 - CUTANEOUS ABSCESS OF RIGHT HAND SNOMED Code(s): 56829718762166537 (2) Group C streptococcal infection Current Visit: Yes Status: Acute Code(s): A49.1 - STREPTOCOCCAL INFECTION, UNSPECIFIED SITE SNOMED Code(s): 822875648 (3) Cellulitis of right hand Current Visit: Yes Status: Acute Code(s): L03.113 - CELLULITIS OF RIGHT UPPER LIMB SNOMED Code(s): 74463065375811806 Plan: 1-patient presented to hospital with increasing pain swelling redness to the right middle finger in this patient was noticed to have a purulent drainage from a small puncture wound on the middle phalanx of the right middle finger on the palmar aspect with some foul-smelling drainage concerning for possible polymi crobial abscess 2-aerobic and anaerobic culture has been obtained to guide further antibiotic therapy 3patient has been eval by orthopedics awaiting final determination regarding further drainage 4culture now growing group C strep we will continue the patient on Unasyn and discontinue the vancomycin Dictation was produced using [employer] dictation software. please excuse any grammatical, word or spelling errors.
--- NOTE | 2023-08-20 13:15 | P.PN ---
Subjective Progress Note Date: 08/20/23 Principal diagnosis: Reason for follow-up is right middle finger abscess and hand cellulitis Patient is a 57-year-old male with a past medical history Significant for pneumonia current everyday smoker patient apparently did develop an injury to the right middle finger when he was trying to climb a tree while out hunting , patient now presented to hospital with worsening swelling redness to the right hand and right middle finger. On today's evaluation That is 08/20/2023, the patient remains to be afebrile, the patient is breathing comfortably on room air, the patient denies any chest pain shortness of breath or cough no nausea vomiting no abdominal pain or any w orsening pain to the right middle finger or the right hand dorsum, no drainage. The patient white count is down to 15,000 as of 08/19/2023, creatinine is 0.56 patient did have a ESR of 91 CRP of 21.6 culture currently growing beta- hemolytic group C strep Objective - Vital Signs Vital signs: Vital Signs Temp 98.8 F 08/20/23 07:47 Pulse 68 08/20/23 07:47 Resp 16 08/20/23 07:47 BP 135/70 08/20/23 07:47 Pulse Ox 93 L 08/20/23 07:47 FiO2 Intake & Output 08/19/23 08/20/23 08/20/23 18:59 06:59 18:59 Intake Total 1125 Balance 1125 Intake: Intake, IV Titration 1125 Amount Ampicillin-Sulbactam 3 gm 200 In Sodium Chloride 0.9% 100 ml @ 200 mls/hr IVPB Q6HR [facility] Rx#:[id number] Sodium Chloride 0.9% 1, 675 000 ml @ 75 mls/hr IV . [id number] [facility] Rx#:[id number] Vancomycin 1,250 mg In 250 Sodium Chloride 0.9% 250 ml @ 125 mls/hr IVPB Q8H [facility] Rx#:[id number] Other: Voiding Method Toilet Toilet # Voids 3 1 - Exam GENERAL DESCRIPTION: Middle-age male lying in bed in no distress RESPIRATORY SYSTEM: Unlabored breathing , decreased breath sounds at bases HEART: S1 S2 regular rate and rhythm , ABDOMEN: Soft , no tenderness EXTREMITIES: Right middle finger and right hand still have significant swelling redness no drainage was noticed - Labs CBC & Chem 7: 08/19/23 09:12 08/20/23 04:55 Labs: Abnormal Lab Results - Last 24 Hours (Table) 08/19/23 08/19/23 08/20/23 Range/Units 09:12 09:12 04:55 ESR 91 H (0-20) mm/Hr Creatinine 0.56 L (0.66-1.25) mg/dL C-Reactive Protein 21.9 H (<1.0) mg/dL Microbiology - Last 24 Hours (Table) 08/18/23 18:00 Gram Stain - Preliminary Finger - Left Third Wound Culture - Preliminary Beta Hemolytic Strep Group C 08/18/23 12:16 Blood Culture - Preliminary Blood 08/18/23 12:16 Blood Culture - Preliminary Blood Assessment and Plan (1) Abscess of finger of right hand Current Visit: Yes Status: Acute Code(s): L02.511 - CUTANEOUS ABSCESS OF RIGHT HAND SNOMED Code(s): 50803177974004376 (2) Cellulitis of right hand Current Visit: Yes Status: Acute Code(s): L03.113 - CELLULITIS OF RIGHT UPPER LIMB SNOMED Code(s): 50474460075041489 (3) Group C streptococcal infection Current Visit: Yes Status: Acute Code(s): A49.1 - STREPTOCOCCAL INFECTION, UNSPECIFIED SITE SNOMED Code(s): 092077663 Plan: 1-patient presented to hospital with increasing pain swelling redness to the right middle finger in this patient was noticed to have a purulent drainage from a small puncture wound on the middle phalanx of the right middle finger on the palmar aspect with some foul-smelling drainage concerning for possible polymicrobial abscess 2-cultures are currently growing group C strep 3patient has been eval by orthopedics and planning for drainage procedure this afternoon 4the patient to continue with Unasyn and will monitor his clinical course closely Dictation was produced using [employer] dictation software. please excuse any grammatical, word or spelling errors. Time with Patient: Less than 30
[2023-08-20] MEDS ORDERED: BACITRACIN OINT 1 EACH PACKET TOPICAL ONE (13:44)
[2023-08-20] MEDS ORDERED: hydrOXYzine pamoate 25 MG CAP PO PRN (14:00)
[2023-08-20] MEDS ORDERED: HYDROmorphone 0.5 MG/0.5 ML SYRINGE IVP PRN ×2 (14:00)
[2023-08-20] MEDS ORDERED: ONDANSETRON 4 MG/2 ML VIAL IVP PRN (14:00)
[2023-08-20] MEDS ORDERED: HYDROcodone/APAP 5-325MG 1 EACH TAB PO PRN (14:00)
[2023-08-20] MEDS ORDERED: diphenhydrAMINE 25 MG CAP PO PRN (14:00)
[2023-08-20] MEDS ORDERED: SENNOSIDES-DOCUSATE SODIUM 1 EACH TAB PO PRN (14:00)
[2023-08-20] MEDS ORDERED: HYDROmorphone 1 MG/ML 1 ML SYRINGE IVP PRN (14:00)
[2023-08-20] MEDS: KETOROLAC 15 MG/ML 1 ML VIAL IVP PRN (18:08)
[2023-08-20] MEDS: HYDROcodone/APAP 5-325MG 1 EACH TAB PO PRN (18:10)
--- NOTE | 2023-08-20 21:55 | P.PN ---
Subjective This is a pleasant 57 years old male with no significant past medical history and he does not follow with PCP. He presents with redness and swelling of his right hand. Patient says that it happens about 2 weeks ago when he injured his right middle finger while he was climbing a tree, he thinks it was locally infected and he popped up couple times but over the last 2 days the swelling and redness was getting more severe and more progressive so he decided to come to the hospital. It's mildly painful right and has tried closed wound on the plantar surface of the right middle finger. No purulent discharge or discoloration. He has limitation of flexing his right hand fingers partly because of the infection and swelling. He denies any other specific complaints, no chest pain or dyspnea. He lives nicotine and he was counseled about within the nicotine patch but he declines. He drinks alcohol occasionally and no drugs. His vitals are stable Labs reviewed he has worsening leukocytosis 16,000 up to 21,000 today. Hemoglobin 12.7. Liver enzymes were unremarkable Right hand and wrist x-ray showing soft tissue swelling with no fracture. Patient started with IV vancomycin and cefepime with orthopedic and infectious disease team were consulted from emergency room 08/19/2023 patient right hand and forearm swelling and redness improving but still significantly abnormal. He had a fever of 100.1 yesterday. No more fever. Leukocytosis trending down to 15,000 Remains on IV Unasyn and vancomycin Possible I&D tomorrow with orthopedic team. There is no absolute contraindication from medical point of view to proceed with I&D of his right hand infection 08/20/2023 Patient status post I and D of his right hand where purulent material will be removed. Patient seen postoperatively he was sitting in bed comfortable, and is in extensive dressing, pain was controlled. No other new complaints. Patient remains on Unasyn Patient wound cultures pending Patient results showing beta-hemolytic streptococcus group C Patient is eager to go home soon at bedside and all questions answered Objective - Vital Signs Vital signs: Vital Signs Temp 97.6 F 08/20/23 15:04 Pulse 66 08/20/23 15:04 Resp 16 08/20/23 15:04 BP 144/79 08/20/23 15:04 Pulse Ox 95 08/20/23 15:04 FiO2 Intake & Output 08/19/23 08/20/23 08/20/23 18:59 06:59 18:59 Intake Total 1125 801 Output Total 2 Balance 1125 799 Intake: IV 801 Intake, IV Titration 1125 Amount Ampicillin-Sulbactam 3 gm 200 In Sodium Chloride 0.9% 100 ml @ 200 mls/hr IVPB Q6HR [facility] Rx#:[id number] Sodium Chloride 0.9% 1, 675 000 ml @ 75 mls/hr IV . [id number] [facility] Rx#:[id number] Vancomycin 1,250 mg In 250 Sodium Chloride 0.9% 250 ml @ 125 mls/hr IVPB Q8H [facility] Rx#:[id number] Output: Estimated Blood Loss 2 Other: Voiding Method Toilet Toilet # Voids 3 1 - Exam GENERAL: The patient is alert and oriented x3, not in any acute distress. Well developed, well nourished. HEENT: Pupils are round and equally reacting to light. EOMI. No scleral icterus. No conjunctival pallor. Normocephalic, atraumatic. No pharyngeal erythema. No thyromegaly. CARDIOVASCULAR: S1 and S2 present. No murmurs, rubs, or gallops. PULMONARY: Chest is clear to auscultation, no wheezing , no crackles. ABDOMEN: Soft, nontender, nondistended, normoactive bowel sounds. No palpable organomegaly. MUSCULOSKELETAL: No joint swelling or deformity. --EXTREMITIES: No cyanosis, clubbing, or pedal edema. Significant right hand surgical wound is healing with a dressing in place, rest of exam is deferred to surgery orthopedic team NEUROLOGICAL: Gross neurological examination did not reveal any focal deficits. SKIN: No rashes. no petechiae. - Labs CBC & Chem 7: 08/19/23 09:12 08/20/23 04:55 Labs: Abnormal Lab Results - Last 24 Hours (Table) 08/19/23 08/20/23 Range/Units 09:12 04:55 ESR 91 H (0-20) mm/Hr Creatinine 0.56 L (0.66-1.25) mg/dL Microbiology - Last 24 Hours (Table) 08/18/23 18:00 Gram Stain - Preliminary Finger - Left Third Wound Culture - Preliminary Beta Hemolytic Strep Group C 08/18/23 12:16 Blood Culture - Preliminary Blood 08/18/23 12:16 Blood Culture - Preliminary Blood Assessment and Plan Assessment: Right hand and forearm cellulitis, status post I&D on 08/20 Nicotine dependence Plan: Plan for OR tomorrow for I&D. From medical perspective there is no absolute contraindication and patient is an acceptable risk Continue with IV antibiotic, current of vancomycin and unasyn Follow-up blood culture results Infectious disease consult Orthopedic team consult Labs and medication were reviewed.. Continue same treatment. Continue with symptomatic treatment. Resume home medication. Monitor labs and vitals. DVT and GI prophylaxis. Further recommendations as per clinical course of the patient DVT prophylaxis: Subcutaneous heparin GI Prophylaxis: Pepcid PT/OT: Pending Prognosis is guarded
[2023-08-21] MEDS: AMPICILLIN-SULBACTAM 3 GM in SODIUM CHLORIDE 0.9% 100 ML IVPB SCH ×4 (05:02→23:50)
[2023-08-21] MEDS: HYDROcodone/APAP 5-325MG 1 EACH TAB PO PRN ×3 (06:08→23:53)
[2023-08-21 08:02] LABS: HCT 34.9 % (39.0-53.0); HGB 11.3 gm/dL (13.0-17.5); Hypochromasia Slight; MCHC 32.5 g/dL (31.0-37.0); MCV 98.6 fL (80.0-100.0); Platelet Count 228 k/uL (150-450); RBC 3.53 m/uL (4.30-5.90); RDW 12.8 % (11.5-15.5); WBC 8.8 k/uL (3.8-10.6)
--- NOTE | 2023-08-21 10:11 | P.PN ---
Subjective Progress Note Date: 08/21/23 Principal diagnosis: Cellulitis right hand. Possible flexor tenosynovitis right hand, middle finger. Dustin is a 57-year-old male admitted to the hospital with cellulitis to his r ight hand. He states that back in mid-May he injured his right hand or climbing onto a tree stand. He states that his middle finger got pinched in the standard which did cause a blister. He had been soaking his hand with Epsom salt and felt that he had significant improvement in his hand. However, over the past several days he developed increased swelling to the middle finger and hand. He was seen in the emergency department and was given a dose of antibiotics and discharged on oral antibiotics. He returned to the emergency department yesterday with increased swelling and redness. He is admitted and is currently on IV vancomycin. He has been seen by infectious disease. We are co nsulted for orthopedic evaluation. White blood cell count on admission was 21.8. White blood cell count now is down to 15. CRP is 21.9. 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 08/20/2023: The patient has no new complaints or concerns today. He has been doing warm soaks with Hibiclens to the right hand since yesterday. He states that he feels the redness is slightly improved but continues to have significant swelling. He reports minimal pain. 08/21/2023: The patient is postop day #1 status post irrigation and debridement of the palmar aspect of the right hand and wrist. The cultures are pending. The patient has no new complaints or concerns today. Vital signs are stable. Objective - Vital Signs Vital signs: Vital Signs Temp 98.6 F 08/21/23 08:07 Pulse 72 08/21/23 08:07 Resp 17 08/21/23 08:07 BP 118/75 08/21/23 08:07 Pulse Ox 94 L 08/21/23 08:07 FiO2 Intake & Output 08/20/23 08/21/23 08/21/23 18:59 06:59 18:59 Intake Total 1301 480 Output Total 2 Balance 1299 480 Intake: IV 801 Intake, IV Titration 500 Amount Ampicillin-Sulbactam 3 gm 200 In Sodium Chloride 0.9% 100 ml @ 200 mls/hr IVPB Q6HR [facility] Rx#:[id number] Sodium Chloride 0.9% 1, 300 000 ml @ 75 mls/hr IV . [id number] [facility] Rx#:[id number] Oral 480 Output: Estimated Blood Loss 2 Other: Voiding Method Toilet Toilet Toilet # Voids 1 - Exam This is a pleasant 57-year-old male in no acute distress. He is alert and oriented 3. Exam of the right upper extremity reveals dressing is clean, dry and intact. There is no erythema extending up into the forearm and elbow at this time. Full elbow motion without difficulty or pain. - Labs CBC & Chem 7: 08/21/23 06:45 08/20/23 04:55 Labs: Abnormal Lab Results - Last 24 Hours (Table) 08/21/23 Range/Units 06:45 RBC 3.53 L (4.30-5.90) m/uL Hgb 11.3 L (13.0-17.5) gm/dL Hct 34.9 L (39.0-53.0) % Microbiology - Last 24 Hours (Table) 08/18/23 18:00 Gram Stain - Final Finger - Left Third Wound Culture - Final Beta Hemolytic Strep Group C 08/20/23 13:09 Gram Stain - Preliminary Hand - Right 08/20/23 13:09 Gram Stain - Preliminary Finger - Right Third 08/20/23 13:09 Gram Stain - Preliminary Finger - Right Third 08/18/23 12:16 Blood Culture - Preliminary Blood 08/18/23 12:16 Blood Culture - Preliminary Blood Assessment and Plan (1) Cellulitis of right hand Current Visit: Yes Status: Acute Code(s): L03.113 - CELLULITIS OF RIGHT UPPER LIMB SNOMED Code(s): 35550176016442978 Plan: The clinical findings are discussed with the patient. We will leave his dressing intact today. Plan on changing dressing tomorrow. Await the culture results.
--- NOTE | 2023-08-21 14:26 | P.PN ---
Subjective Progress Note Date: 08/21/23 Principal diagnosis: Reason for follow-up is right middle finger abscess and hand cellulitis Patient is a 57-year-old male with a past medical history Significant for pneumonia current everyday smoker patient apparently did develop an injury to the right middle finger when he was trying to climb a tree while out hunting , patient now presented to hospital with worsening swelling redness to the right hand and right middle finger.Patient is status post I&D of the palmar aspect of the right hand and wrist by orthopedic surgery completed on 08/20/2023. On today's evaluation that is 08/21/2023 patient denies having any fever or any chills patient is breathing comfortably on room air no chest pain shortness of breath or cough no nausea vomiting pain to the right and is currently controlled with the current medication. The patient white count is down to 8.8 creatinine 0.56, OR cultures are currently pending Objective - Vital Signs Vital signs: Vital Signs Temp 98.6 F 08/21/23 08:07 Pulse 72 08/21/23 08:07 Resp 17 08/21/23 08:07 BP 118/75 08/21/23 08:07 Pulse Ox 94 L 08/21/23 08:07 FiO2 Intake & Output 08/20/23 08/21/23 08/21/23 18:59 06:59 18:59 Intake Total 1301 480 Output Total 2 Balance 1299 480 Intake: IV 801 Intake, IV Titration 500 Amount Ampicillin-Sulbactam 3 gm 200 In Sodium Chloride 0.9% 100 ml @ 200 mls/hr IVPB Q6HR [facility] Rx#:[id number] Sodium Chloride 0.9% 1, 300 000 ml @ 75 mls/hr IV . [id number] [facility] Rx#:[id number] Oral 480 Output: Estimated Blood Loss 2 Other: Voiding Method Toilet Toilet Toilet # Voids 1 - Exam GENERAL DESCRIPTION: Middle-age male lying in bed in no distress RESPIRATORY SYSTEM: Unlabored breathing , decreased breath sounds at bases HEART: S1 S2 regular rate and rhythm , ABDOMEN: Soft , no tenderness EXTREMITIES: Right hand is currently covered in OR dressing no drainage on the dressing - Labs CBC & Chem 7: 08/21/23 06:45 08/20/23 04:55 Labs: Abnormal Lab Results - Last 24 Hours (Table) 08/21/23 Range/Units 06:45 RBC 3.53 L (4.30-5.90) m/uL Hgb 11.3 L (13.0-17.5) gm/dL Hct 34.9 L (39.0-53.0) % Microbiology - Last 24 Hours (Table) 08/18/23 18:00 Gram Stain - Final Finger - Left Third Wound Culture - Final Beta Hemolytic Strep Group C 08/20/23 13:09 Gram Stain - Preliminary Hand - Right 08/20/23 13:09 Gram Stain - Preliminary Finger - Right Third 08/20/23 13:09 Gram Stain - Preliminary Finger - Right Third 08/18/23 12:16 Blood Culture - Preliminary Blood 08/18/23 12:16 Blood Culture - Preliminary Blood Assessment and Plan (1) Abscess of finger of right hand Current Visit: Yes Status: Acute Code(s): L02.511 - CUTANEOUS ABSCESS OF RIGHT HAND SNOMED Code(s): 22349507046707689 (2) Cellulitis of right hand Current Visit: Yes Status: Acute Code(s): L03.113 - CELLULITIS OF RIGHT UPPER LIMB SNOMED Code(s): 32507135377839597 (3) Group C streptococcal infection Current Visit: Yes Status: Acute Code(s): A49.1 - STREPTOCOCCAL INFECTION, UNSPECIFIED SITE SNOMED Code(s): 716170510 Plan: 1-patient presented to hospital with increasing pain swelling redness to the right middle finger in this patient was noticed to have a purulent drainage from a small puncture wound on the middle phalanx of the right middle finger on the palmar aspect with some foul-smelling drainage concerning for possible polymicrobial abscess 2-Patient is status post surgical drainage of the right hand and wrist abscess by orthopedics on 08/20/2023 with cultures currently pending right middle finger culture grew group C strep. 3patient to continue with Unasyn while waiting for the OR culture to finalize more likely will need outpatient IV antibiotic therapy on discharge Questions concerns were answered Dictation was produced using [employer] software. please excuse any grammatical, word or spelling errors. Time with Patient: Less than 30
[2023-08-21] MEDS: SODIUM CHLORIDE 0.9% 1,000 ML IV SCH ×2 (15:35→21:47)
--- NOTE | 2023-08-21 22:07 | P.PN ---
Subjective This is a pleasant 57 years old male with no significant past medical history and he does not follow with PCP. He presents with redness and swelling of his right hand. Patient says that it happens about 2 weeks ago when he injured his right middle finger while he was climbing a tree, he thinks it was locally infected and he popped up couple times but over the last 2 days the swelling and redness was getting more severe and more progressive so he decided to come to the hospital. It's mildly painful right and has tried closed wound on the plantar surface of the right middle finger. No purulent discharge or discoloration. He has limitation of flexing his right hand fingers partly because of the infection and swelling. He denies any other specific complaints, no chest pain or dyspnea. He lives nicotine and he was counseled about within the nicotine patch but he declines. He drinks alcohol occasionally and no drugs. His vitals are stable Labs reviewed he has worsening leukocytosis 16,000 up to 21,000 today. Hemoglobin 12.7. Liver enzymes were unremarkable Right hand and wrist x-ray showing soft tissue swelling with no fracture. Patient started with IV vancomycin and cefepime with orthopedic and infectious disease team were consulted from emergency room 08/19/2023 patient right hand and forearm swelling and redness improving but still significantly abnormal. He had a fever of 100.1 yesterday. No more fever. Leukocytosis trending down to 15,000 Remains on IV Unasyn and vancomycin Possible I&D tomorrow with orthopedic team. There is no absolute contraindication from medical point of view to proceed with I&D of his right hand infection 08/20/2023 Patient status post I and D of his right hand where purulent material will be removed. Patient seen postoperatively he was sitting in bed comfortable, and is in extensive dressing, pain was controlled. No other new complaints. Patient remains on Unasyn Patient wound cultures pending Patient results showing beta-hemolytic streptococcus group C Patient is eager to go home soon at bedside and all questions answered 08/21/2023 Right hand with extensive dressing, pain controlled. No new complaint Wound culture growing beta hemolytic streptococcus group C, pending final results Currently remains on IV Unasyn Surgery team will change dressing over his hand wound tomorrow Objective - Vital Signs Vital signs: Vital Signs Temp 97.5 F L 08/21/23 12:58 Pulse 73 08/21/23 12:58 Resp 17 08/21/23 12:58 BP 124/77 08/21/23 12:58 Pulse Ox 97 08/21/23 12:58 FiO2 Intake & Output 08/20/23 08/21/23 08/21/23 18:59 06:59 18:59 Intake Total 1301 1600 Output Total 2 Balance 1299 1600 Intake: IV 801 Intake, IV Titration 500 100 Amount Ampicillin-Sulbactam 3 gm 200 100 In Sodium Chloride 0.9% 100 ml @ 200 mls/hr IVPB Q6HR [facility] Rx#:[id number] Sodium Chloride 0.9% 1, 300 000 ml @ 75 mls/hr IV . [id number] [facility] Rx#:[id number] Oral 1500 Output: Estimated Blood Loss 2 Other: Voiding Method Toilet Toilet Toilet # Voids 1 2 - Exam GENERAL: The patient is alert and oriented x3, not in any acute distress. Well developed, well nourished. HEENT: Pupils are round and equally reacting to light. EOMI. No scleral icterus. No conjunctival pallor. Normocephalic, atraumatic. No pharyngeal erythema. No thyromegaly. CARDIOVASCULAR: S1 and S2 present. No murmurs, rubs, or gallops. PULMONARY: Chest is clear to auscultation, no wheezing , no crackles. ABDOMEN: Soft, nontender, nondistended, normoactive bowel sounds. No palpable organomegaly. MUSCULOSKELETAL: No joint swelling or deformity. --EXTREMITIES: No cyanosis, clubbing, or pedal edema. Significant right hand surgical wound is healing with a dressing in place, rest of exam is deferred to surgery orthopedic team NEUROLOGICAL: Gross neurological examination did not reveal any focal deficits. SKIN: No rashes. no petechiae. - Labs CBC & Chem 7: 08/21/23 06:45 08/20/23 04:55 Labs: Abnormal Lab Results - Last 24 Hours (Table) 08/21/23 Range/Units 06:45 RBC 3.53 L (4.30-5.90) m/uL Hgb 11.3 L (13.0-17.5) gm/dL Hct 34.9 L (39.0-53.0) % Microbiology - Last 24 Hours (Table) 08/18/23 12:16 Blood Culture - Preliminary Blood 08/18/23 12:16 Blood Culture - Preliminary Blood 08/18/23 18:00 Gram Stain - Final Finger - Left Third Wound Culture - Final Beta Hemolytic Strep Group C 08/20/23 13:09 Gram Stain - Preliminary Hand - Right 08/20/23 13:09 Gram Stain - Preliminary Finger - Right Third 08/20/23 13:09 Gram Stain - Preliminary Finger - Right Third Assessment and Plan Assessment: Right hand and forearm cellulitis, status post I&D on 08/20 Nicotine dependence Plan: Plan for OR tomorrow for I&D. From medical perspective there is no absolute contraindication and patient is an acceptable risk Continue with IV antibiotic, current of vancomycin and unasyn Follow-up blood culture results Infectious disease consult Orthopedic team consult Labs and medication were reviewed.. Continue same treatment. Continue with symptomatic treatment. Resume home medication. Monitor labs and vitals. DVT and GI prophylaxis. Further recommendations as per clinical course of the patient DVT prophylaxis: Subcutaneous heparin GI Prophylaxis: Pepcid PT/OT: Pending Prognosis is guarded
[2023-08-22] MEDS: AMPICILLIN-SULBACTAM 3 GM in SODIUM CHLORIDE 0.9% 100 ML IVPB SCH ×4 (06:20→23:53)
--- NOTE | 2023-08-22 10:15 | P.PN ---
Subjective Progress Note Date: 08/22/23 Principal diagnosis: Cellulitis right hand. Possible flexor tenosynovitis right hand, middle finger. Dustin is a 57-year-old male admitted to the hospital with cellulitis to his r ight hand. He states that back in mid-May he injured his right hand or climbing onto a tree stand. He states that his middle finger got pinched in the standard which did cause a blister. He had been soaking his hand with Epsom salt and felt that he had significant improvement in his hand. However, over the past several days he developed increased swelling to the middle finger and hand. He was seen in the emergency department and was given a dose of antibiotics and discharged on oral antibiotics. He returned to the emergency department yesterday with increased swelling and redness. He is admitted and is currently on IV vancomycin. He has been seen by infectious disease. We are co nsulted for orthopedic evaluation. White blood cell count on admission was 21.8. White blood cell count now is down to 15. CRP is 21.9. 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 08/20/2023: The patient has no new complaints or concerns today. He has been doing warm soaks with Hibiclens to the right hand since yesterday. He states that he feels the redness is slightly improved but continues to have significant swelling. He reports minimal pain. 08/21/2023: The patient is postop day #1 status post irrigation and debridement of the palmar aspect of the right hand and wrist. The cultures are pending. The patient has no new complaints or concerns today. Vital signs are stable. 08/22/2023: The patient is postop day #2 status post irrigation and debridement of the palmar aspect of the right hand and wrist area and cultures are pending. He has no new complaints or concerns today. Vital signs are stable. White blood cell count is 8.8. Objective - Vital Signs Vital signs: Vital Signs Temp 98.5 F 08/22/23 07:57 Pulse 53 L 08/22/23 07:57 Resp 17 08/22/23 07:57 BP 151/82 08/22/23 07:57 Pulse Ox 97 08/22/23 07:57 FiO2 Intake & Output 12/31/23 01/01/24 01/01/24 18:59 06:59 18:59 Intake Total 1600 1265 Balance 1600 1265 Intake: Intake, IV Titration 100 1025 Amount Ampicillin-Sulbactam 3 gm 100 200 In Sodium Chloride 0.9% 100 ml @ 200 mls/hr IVPB Q6HR [facility] Rx#:[id number] Sodium Chloride 0.9% 1, 825 000 ml @ 75 mls/hr IV . [id number] [facility] Rx#:[id number] Oral 1500 240 Other: Voiding Method Toilet Toilet Toilet # Voids 2 - Exam This is a pleasant 57-year-old male in no acute distress. He is alert and orie nted 3. Exam of the right upper extremity reveals slight drainage on the dressing. Dressing is removed. His closed incisions look good with no active drainage. His swelling is improved. He is still unable to fully extend the fingers. Mild erythema to the palmar aspect of the hand. Capillary refill less than 3 seconds. - Labs CBC & Chem 7: 08/21/23 06:45 08/20/23 04:55 Labs: Microbiology - Last 24 Hours (Table) 08/20/23 13:09 Gram Stain - Preliminary Finger - Right Third Wound Culture - Preliminary Beta Hemolytic Strep Group C 08/20/23 13:09 Gram Stain - Preliminary Finger - Right Third Wound Culture - Preliminary Beta Hemolytic Strep Group C 08/20/23 13:09 Gram Stain - Preliminary Hand - Right Wound Culture - Preliminary Beta Hemolytic Strep Group C 08/18/23 12:16 Blood Culture - Preliminary Blood 08/18/23 12:16 Blood Culture - Preliminary Blood 08/18/23 18:00 Gram Stain - Final Finger - Left Third Wound Culture - Final Beta Hemolytic Strep Group C Assessment and Plan (1) Cellulitis of right hand Current Visit: Yes Status: Acute Code(s): L03.113 - CELLULITIS OF RIGHT UPPER LIMB SNOMED Code(s): 00456987790223532 Plan: The clinical findings are discussed with the patient. Dressing is changed today. Continue IV antibiotics. Hopefully by tomorrow we will have a plan for discharge. Will continue to follow.
[2023-08-22] MEDS: SODIUM CHLORIDE 0.9% 1,000 ML IV SCH ×2 (12:10→19:30)
--- NOTE | 2023-08-22 16:10 | P.PN ---
Subjective Progress Note Date: 08/22/23 Principal diagnosis: Reason for follow-up is right middle finger abscess and hand cellulitis Patient is a 57-year-old male with a past medical history Significant for pneumonia current everyday smoker patient apparently did develop an injury to the right middle finger when he was trying to climb a tree while out hunting , patient now presented to hospital with worsening swelling redness to the right hand and right middle finger.Patient is status post I&D of the palmar aspect of the right hand and wrist by orthopedic surgery completed on 08/20/2023. On today's evaluation that is 08/22/2023, the patient remains to be afebrile, the patient is breathing comfortably on 2 L nasal cannula supplemental oxygen patient denies having any chest pain shortness of breath or cough, the patient denies any nausea no vomiting and no diarrhea has been reported, the patient right hand pain and swelling has improved and no drainage Patient did have white count normalized to 8.8, creatinine 0.56 while culture growing beta-hemolytic group C strep along with anaerobic gram-negative bacilli Objective - Vital Signs Vital signs: Vital Signs Temp 98.6 F 08/22/23 13:24 Pulse 88 08/22/23 13:24 Resp 16 08/22/23 13:24 BP 158/87 08/22/23 13:24 Pulse Ox 95 08/22/23 13:24 FiO2 Intake & Output 08/21/23 08/22/23 08/22/23 18:59 06:59 18:59 Intake Total 1600 1265 Balance 1600 1265 Intake: Intake, IV Titration 100 1025 Amount Ampicillin-Sulbactam 3 gm 100 200 In Sodium Chloride 0.9% 100 ml @ 200 mls/hr IVPB Q6HR [facility] Rx#:[id number] Sodium Chloride 0.9% 1, 825 000 ml @ 75 mls/hr IV . [id number] [facility] Rx#:[id number] Oral 1500 240 Other: Voiding Method Toilet Toilet Toilet # Voids 2 - Exam GENERAL DESCRIPTION: Middle-age male lying in bed in no distress RESPIRATORY SYSTEM: Unlabored breathing , decreased breath sounds at bases HEART: S1 S2 regular rate and rhythm , ABDOMEN: Soft , no tenderness EXTREMITIES: Right hand is currently covered in OR dressing no drainage on the dressing - Labs CBC & Chem 7: 08/21/23 06:45 08/20/23 04:55 Labs: Microbiology - Last 24 Hours (Table) 08/18/23 18:00 Anaerobic Culture - Preliminary Finger - Right Third Anaerobic Gm Negative Bacilli 08/20/23 13:09 Gram Stain - Preliminary Finger - Right Third Wound Culture - Preliminary Beta Hemolytic Strep Group C 08/20/23 13:09 Gram Stain - Preliminary Finger - Right Third Wound Culture - Preliminary Beta Hemolytic Strep Group C 08/20/23 13:09 Gram Stain - Preliminary Hand - Right Wound Culture - Preliminary Beta Hemolytic Strep Group C 08/18/23 12:16 Blood Culture - Preliminary Blood 08/18/23 12:16 Blood Culture - Preliminary Blood Assessment and Plan (1) Abscess of finger of right hand Current Visit: Yes Status: Acute Code(s): L02.511 - CUTANEOUS ABSCESS OF RIGHT HAND SNOMED Code(s): 23920936856270159 (2) Cellulitis of right hand Current Visit: Yes Status: Acute Code(s): L03.113 - CELLULITIS OF RIGHT UPPER LIMB SNOMED Code(s): 19985765233741441 (3) Group C streptococcal infection Current Visit: Yes Status: Acute Code(s): A49.1 - STREPTOCOCCAL INFECTION, UNSPECIFIED SITE SNOMED Code(s): 978992223 Plan: 1-patient presented to hospital with increasing pain swelling redness to the right middle finger in this patient was noticed to have a purulent drainage from a small puncture wound on the middle phalanx of the right middle finger on the palmar aspect with some foul-smelling drainage concerning for possible polym icrobial abscess 2-Patient is status post surgical drainage of the right hand and wrist abscess by orthopedics on 08/20/2023 with cultures currently pending right middle finger culture grew group C strep. 3patient to continue with Unasyn , Keeping in mind extensive infection he will benefit from outpatient IV antibiotic therapy for the PICC line will be ordered, multiple questions concern answered Dictation was produced using [employer] software. please excuse any grammatical, word or spelling errors. Time with Patient: Less than 30
--- NOTE | 2023-08-22 20:24 | P.PN ---
Subjective This is a pleasant 57 years old male with no significant past medical history and he does not follow with PCP. He presents with redness and swelling of his right hand. Patient says that it happens about 2 weeks ago when he injured his right middle finger while he was climbing a tree, he thinks it was locally infected and he popped up couple times but over the last 2 days the swelling and redness was getting more severe and more progressive so he decided to come to the hospital. It's mildly painful right and has tried closed wound on the plantar surface of the right middle finger. No purulent discharge or discoloration. He has limitation of flexing his right hand fingers partly because of the infection and swelling. He denies any other specific complaints, no chest pain or dyspnea. He lives nicotine and he was counseled about within the nicotine patch but he declines. He drinks alcohol occasionally and no drugs. His vitals are stable Labs reviewed he has worsening leukocytosis 16,000 up to 21,000 today. Hemoglobin 12.7. Liver enzymes were unremarkable Right hand and wrist x-ray showing soft tissue swelling with no fracture. Patient started with IV vancomycin and cefepime with orthopedic and infectious disease team were consulted from emergency room 08/19/2023 patient right hand and forearm swelling and redness improving but still significantly abnormal. He had a fever of 100.1 yesterday. No more fever. Leukocytosis trending down to 15,000 Remains on IV Unasyn and vancomycin Possible I&D tomorrow with orthopedic team. There is no absolute contraindication from medical point of view to proceed with I&D of his right hand infection 08/20/2023 Patient status post I and D of his right hand where purulent material will be removed. Patient seen postoperatively he was sitting in bed comfortable, and is in extensive dressing, pain was controlled. No other new complaints. Patient remains on Unasyn Patient wound cultures pending Patient results showing beta-hemolytic streptococcus group C Patient is eager to go home soon at bedside and all questions answered 08/21/2023 Right hand with extensive dressing, pain controlled. No new complaint Wound culture growing beta hemolytic streptococcus group C, pending final results Currently remains on IV Unasyn Surgery team will change dressing over his hand wound tomorrow 08/22/2023 Right hand in a dressing, pain controlled. Dressing was changed today by orthopedic team. Remains on IV Unasyn Plan for PICC line and IV antibiotics upon discharge Orthopedic team following closely as well Objective - Vital Signs Vital signs: Vital Signs Temp 98.5 F 08/22/23 07:57 Pulse 53 L 08/22/23 07:57 Resp 17 08/22/23 07:57 BP 151/82 08/22/23 07:57 Pulse Ox 97 08/22/23 07:57 FiO2 Intake & Output 08/21/23 08/22/23 08/22/23 18:59 06:59 18:59 Intake Total 1600 1265 Balance 1600 1265 Intake: Intake, IV Titration 100 1025 Amount Ampicillin-Sulbactam 3 gm 100 200 In Sodium Chloride 0.9% 100 ml @ 200 mls/hr IVPB Q6HR [facility] Rx#:[id number] Sodium Chloride 0.9% 1, 825 000 ml @ 75 mls/hr IV . [id number] [facility] Rx#:[id number] Oral 1500 240 Other: Voiding Method Toilet Toilet Toilet # Voids 2 - Exam GENERAL: The patient is alert and oriented x3, not in any acute distress. Well developed, well nourished. HEENT: Pupils are round and equally reacting to light. EOMI. No scleral icterus. No conjunctival pallor. Normocephalic, atraumatic. No pharyngeal erythema. No thyromegaly. CARDIOVASCULAR: S1 and S2 present. No murmurs, rubs, or gallops. PULMONARY: Chest is clear to auscultation, no wheezing , no crackles. ABDOMEN: Soft, nontender, nondistended, normoactive bowel sounds. No palpable organomegaly. MUSCULOSKELETAL: No joint swelling or deformity. --EXTREMITIES: No cyanosis, clubbing, or pedal edema. Significant right hand surgical wound is healing with a dressing in place, rest of exam is deferred to surgery orthopedic team NEUROLOGICAL: Gross neurological examination did not reveal any focal deficits. SKIN: No rashes. no petechiae. - Labs CBC & Chem 7: 08/21/23 06:45 08/20/23 04:55 Labs: Microbiology - Last 24 Hours (Table) 08/20/23 13:09 Gram Stain - Preliminary Finger - Right Third Wound Culture - Preliminary Beta Hemolytic Strep Group C 08/20/23 13:09 Gram Stain - Preliminary Finger - Right Third Wound Culture - Preliminary Beta Hemolytic Strep Group C 08/20/23 13:09 Gram Stain - Preliminary Hand - Right Wound Culture - Preliminary Beta Hemolytic Strep Group C 08/18/23 12:16 Blood Culture - Preliminary Blood 08/18/23 12:16 Blood Culture - Preliminary Blood 08/18/23 18:00 Gram Stain - Final Finger - Left Third Wound Culture - Final Beta Hemolytic Strep Group C Assessment and Plan Assessment: Right hand and forearm cellulitis, status post I&D on 08/20 Nicotine dependence Plan: Plan for OR tomorrow for I&D. From medical perspective there is no absolute contraindication and patient is an acceptable risk Continue with IV antibiotic, current of vancomycin and unasyn Follow-up blood culture results Infectious disease consult Orthopedic team consult Labs and medication were reviewed.. Continue same treatment. Continue with symptomatic treatment. Resume home medication. Monitor labs and vitals. DVT and GI prophylaxis. Further recommendations as per clinical course of the patient DVT prophylaxis: Subcutaneous heparin GI Prophylaxis: Pepcid PT/OT: Pending Prognosis is guarded
[2023-08-23] MEDS: AMPICILLIN-SULBACTAM 3 GM in SODIUM CHLORIDE 0.9% 100 ML IVPB SCH ×2 (05:25→16:37)
--- NOTE | 2023-08-23 11:09 | P.PN ---
Subjective Progress Note Date: 08/23/23 Principal diagnosis: Cellulitis right hand. Possible flexor tenosynovitis right hand, middle finger. Dustin is a 57-year-old male admitted to the hospital with cellulitis to his r ight hand. He states that back in mid-May he injured his right hand or climbing onto a tree stand. He states that his middle finger got pinched in the standard which did cause a blister. He had been soaking his hand with Epsom salt and felt that he had significant improvement in his hand. However, over the past several days he developed increased swelling to the middle finger and hand. He was seen in the emergency department and was given a dose of antibiotics and discharged on oral antibiotics. He returned to the emergency department yesterday with increased swelling and redness. He is admitted and is currently on IV vancomycin. He has been seen by infectious disease. We are co nsulted for orthopedic evaluation. White blood cell count on admission was 21.8. White blood cell count now is down to 15. CRP is 21.9. 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 08/20/2023: The patient has no new complaints or concerns today. He has been doing warm soaks with Hibiclens to the right hand since yesterday. He states that he feels the redness is slightly improved but continues to have significant swelling. He reports minimal pain. 08/21/2023: The patient is postop day #1 status post irrigation and debridement of the palmar aspect of the right hand and wrist. The cultures are pending. The patient has no new complaints or concerns today. Vital signs are stable. 08/23/2023: The patient is postop day #3 status post irrigation and debridement of the palmar aspect of the right hand and wrist area and cultures are showing Strep C. He has no new complaints or concerns today. Vital signs are stable. White blood cell count is 8.8. Objective - Vital Signs Vital signs: Vital Signs Temp 98.0 F 08/23/23 07:35 Pulse 58 L 08/23/23 07:35 Resp 18 08/23/23 07:35 BP 144/81 08/23/23 07:35 Pulse Ox 99 08/23/23 07:35 FiO2 Intake & Output 08/22/23 08/23/23 08/23/23 18:59 06:59 18:59 Intake Total 100 1100 Balance 100 1100 Intake: Intake, IV Titration 100 1100 Amount Ampicillin-Sulbactam 3 gm 100 200 In Sodium Chloride 0.9% 100 ml @ 200 mls/hr IVPB Q6HR [facility] Rx#:[id number] Sodium Chloride 0.9% 1, 900 000 ml @ 75 mls/hr IV . [id number] [facility] Rx#:[id number] Other: Voiding Method Toilet Toilet Toilet # Voids 2 2 - Exam This is a pleasant 57-year-old male in no acute distress. He is alert and oriented 3. Exam of the right upper extremity reveals slight drainage on the dressing. Dressing is removed. His closed incisions look good with no active drainage. His swelling is improved. He is still unable to fully extend the fingers. Mild erythema to the palmar aspect of the hand. Tenderness over the p almar aspect of the hand, about the first and fifth rays. Capillary refill less than 3 seconds. - Labs CBC & Chem 7: 08/23/23 12:05 08/20/23 04:55 Labs: Microbiology - Last 24 Hours (Table) 08/20/23 13:09 Anaerobic Culture - Preliminary Hand - Right 08/20/23 13:09 Anaerobic Culture - Preliminary Finger - Right Third 08/20/23 13:09 Gram Stain - Final Finger - Right Third Wound Culture - Final Beta Hemolytic Strep Group C 08/20/23 13:09 Gram Stain - Final Finger - Right Third Wound Culture - Final Beta Hemolytic Strep Group C 08/20/23 13:09 Gram Stain - Final Hand - Right Wound Culture - Final Beta Hemolytic Strep Group C 08/18/23 18:00 Anaerobic Culture - Preliminary Finger - Right Third Anaerobic Gm Negative Bacilli Assessment and Plan (1) Cellulitis of right hand Current Visit: Yes Status: Acute Code(s): L03.113 - CELLULITIS OF RIGHT UPPER LIMB SNOMED Code(s): 15921631581697897 Plan: The clinical findings are discussed with the patient. Dressing is changed today. Continue IV antibiotics. Repeat I&D today. PICC Line insertion per ID. Agree with above. Patient seen and examined. There is improvement but he still has pain about the SF A1 hina. No pain over the flexor tendon sheath. All fingers are stiff but minimal pain with forced extension. Significant swelling over the ulnar side of the hand. We will proceed with repeat I&D.
[2023-08-23 12:13] LABS: HCT 34.2 % (39.0-53.0); HGB 11.4 gm/dL (13.0-17.5); MCH 31.4 pg (25.0-35.0); MCHC 33.2 g/dL (31.0-37.0); MCV 94.4 fL (80.0-100.0); Mean Platelet Volume 8.8; Platelet Count 292 k/uL (150-450); RBC 3.62 m/uL (4.30-5.90); WBC 9.2 k/uL (3.8-10.6)
[2023-08-23 12:30] LABS: INR 1.1 (<1.2); Prothrombin Time 11.8 sec (10.0-12.5)
[2023-08-23] MEDS ORDERED: LIDOCAINE 1% INJ 10MG/ML (20 ML MDV) ONE ×2 (12:49→14:07)
--- NOTE | 2023-08-23 13:26 | P.PCN ---
Date of Procedure: 08/23/23 Preoperative Diagnosis: right hand cellulitis Postoperative Diagnosis: same Procedure(s) Performed: Ultrasound guided left basilic vein PICC line placement Anesthesia: local Surgeon: Femi Hummel Estimated Blood Loss (ml): 2 Pathology: none sent Condition: stable Disposition: floor Indications for Procedure: 57 year old gentleman with right hand cellulitis presents to the lab analyst for placement of PICC line for continued IV abx per ID. Description of Procedure: After written and informed consent was obtained the patient and all risks, benefits and competitions were described the patient was brought to the [facility] and laid in a supine position with his left arm outstretched on an armboard. The area of the left arm was prepped and draped in usual sterile fashion. Timeout was performed in normal fashion. Utilizing ultrasound the basilic vein was visualized and shown to be compressible without any visible thrombus. Under ultrasound guidance the basilic vein was then cannulated with a micropuncture needle and wire was placed under direct visualization of fluoroscopy. Introducer sheath was then placed. The catheter was measured and cut to the appropriate length which was 49 cm. The catheter was then guided through the breakaway sheath and the sheath was removed with good positioning was visualized under fluoroscopy. The catheter was pulled and flushed easily. It was then secured in place in normal fashion. Patient tolerated the procedure well was sent back to his room for recovery.
[2023-08-23] MEDS ORDERED: LACTATED RINGERS 1,000 ML IV ONE (13:28)
[2023-08-23] MEDS ORDERED: DEXAMETHASONE SOD PHOSPHATE 4 MG/ML 1 ML VIAL IVP ONE (13:44)
[2023-08-23] MEDS ORDERED: PROPOFOL 10 MG/ML 20 ML VIAL IV ONE (14:07)
[2023-08-23] MEDS ORDERED: ePHEDrine 50 MG/ML 1 ML VIAL ONE (14:07)
[2023-08-23] MEDS ORDERED: HYDROmorphone (PF) 1 MG/ML ONE (14:07)
[2023-08-23] MEDS ORDERED: fentaNYL (PF) 50 MCG/ML 2 ML AMP ONE (14:07)
[2023-08-23] MEDS ORDERED: LIDOCAINE 1%-EPI 1:100,000 50 ML VIAL SQ ONE (14:20)
[2023-08-23] MEDS ORDERED: BUPIVACAINE (PF) 0.25% 30 ML VIAL SQ ONE (14:21)
--- NOTE | 2023-08-23 14:35 | P.PN ---
Subjective Progress Note Date: 08/23/23 Principal diagnosis: Reason for follow-up is right middle finger abscess and hand cellulitis Patient is a 57-year-old male with a past medical history Significant for pneumonia current everyday smoker patient apparently did develop an injury to the right middle finger when he was trying to climb a tree while out hunting , patient now presented to hospital with worsening swelling redness to the right hand and right middle finger.Patient is status post I&D of the palmar aspect of the right hand and wrist by orthopedic surgery completed on 08/20/2023. On today's evaluation that is 08/23/2023, the patient remains to be afebrile the patient is breathing comfortably on 1 L nasal cannula oxygen, the patient denies any chest pain shortness of breath denies any cough or sputum production, the patient denies having any nausea no vomiting no abdominal pain and no diarrhea, patient pain to the right hand has decreased in intensity Patient did have white count of 9.2, creatinine 0.56 local cultures with group C strep and anaerobes Objective - Vital Signs Vital signs: Vital Signs Temp 98.0 F 08/23/23 07:35 Pulse 58 L 08/23/23 07:35 Resp 18 08/23/23 07:35 BP 144/81 08/23/23 07:35 Pulse Ox 99 08/23/23 07:35 FiO2 Intake & Output 08/22/23 08/23/23 08/23/23 18:59 06:59 18:59 Intake Total 100 1100 Balance 100 1100 Intake: Intake, IV Titration 100 1100 Amount Ampicillin-Sulbactam 3 gm 100 200 In Sodium Chloride 0.9% 100 ml @ 200 mls/hr IVPB Q6HR [facility] Rx#:[id number] Sodium Chloride 0.9% 1, 900 000 ml @ 75 mls/hr IV . [id number] [facility] Rx#:[id number] Other: Voiding Method Toilet Toilet Toilet # Voids 2 2 - Exam GENERAL DESCRIPTION: Middle-age male lying in bed in no distress RESPIRATORY SYSTEM: Unlabored breathing , decreased breath sounds at bases HEART: S1 S2 regular rate and rhythm , ABDOMEN: Soft , no tenderness EXTREMITIES: Right hand is currently covered in OR dressing no drainage on the dressing - Labs CBC & Chem 7: 08/23/23 12:05 08/20/23 04:55 Labs: Microbiology - Last 24 Hours (Table) 08/20/23 13:09 Anaerobic Culture - Preliminary Hand - Right 08/20/23 13:09 Anaerobic Culture - Preliminary Finger - Right Third 08/20/23 13:09 Gram Stain - Final Finger - Right Third Wound Culture - Final Beta Hemolytic Strep Group C 08/20/23 13:09 Gram Stain - Final Finger - Right Third Wound Culture - Final Beta Hemolytic Strep Group C 08/20/23 13:09 Gram Stain - Final Hand - Right Wound Culture - Final Beta Hemolytic Strep Group C 08/18/23 18:00 Anaerobic Culture - Preliminary Finger - Right Third Anaerobic Gm Negative Bacilli Assessment and Plan (1) Abscess of finger of right hand Current Visit: Yes Status: Acute Code(s): L02.511 - CUTANEOUS ABSCESS OF RIGHT HAND SNOMED Code(s): 61689441981730197 (2) Cellulitis of right hand Current Visit: Yes Status: Acute Code(s): L03.113 - CELLULITIS OF RIGHT UPPER LIMB SNOMED Code(s): 81456552663145966 (3) Group C streptococcal infection Current Visit: Yes Status: Acute Code(s): A49.1 - STREPTOCOCCAL INFECTION, UNSPECIFIED SITE SNOMED Code(s): 841690091 Plan: 1-patient presented to hospital with increasing pain swelling redness to the right middle finger in this patient was noticed to have a purulent drainage from a small puncture wound on the middle phalanx of the right middle finger on the palmar aspect with some foul-smelling drainage concerning for possible polymicrobial abscess 2-Patient is status post surgical drainage of the right hand and wrist abscess by orthopedics on 08/20/2023 with cultures currently pending right middle finger culture grew group C strep. 3patient antibiotic will be switched to Rocephin 2 g daily along with oral Flagyl x 2 to 3 weeks depending on clinical response and close outpatient follow-up currently waiting for PICC line placement Dictation was produced using [employer] dictation software. please excuse any grammatical, word or spelling errors. Time with Patient: Less than 30
[2023-08-23] MEDS ORDERED: BACITRACIN ZINC 500 UNIT/GM OINT 28.4 GM TUBE TOPICAL ONE (15:24)
[2023-08-23] MEDS: SODIUM CHLORIDE 0.9% 1,000 ML IV SCH (16:29)
[2023-08-23 16:37] LABS: ALT 16 U/L (10-49); AST 17 U/L (14-35); Albumin 3.3 g/dL (3.8-4.9); Alkaline Phosphatase 57 U/L (41-126); Blood Urea Nitrogen 8.4 mg/dL (9.0-27.0); Carbon Dioxide 19.6 mmol/L (21.6-31.8); Chloride 105 mmol/L (96-109); Globulin 2.2 g/dL (1.6-3.3); Glucose 90 mg/dL (70-110); Potassium 4.1 mmol/L (3.5-5.5); Sodium 139 mmol/L (135-145); Total Bilirubin 0.4 mg/dL (0.3-1.2); Total Protein 5.5 g/dL (6.2-8.2)
--- NOTE | 2023-08-23 16:39 | P.OP ---
Date of Procedure: 08/23/23 Preoperative Diagnosis: Right hand horseshoe abscess Postoperative Diagnosis: same Procedure(s) Performed: Right hand incision and drainage Anesthesia: MARIBEL local Surgeon: Jennifer Arellano Marketing Automation Manager #1: Ronda Rodriguez Condition: stable Disposition: PACU Indications for Procedure: Dustin underwent I&D of the Right hand several days ago with purulence found in the carpal tunnel and middle finger flexor tendon sheath. He has partially improved. Swelling is not improving on the ulnar side of his hand and he has pain over the A1 hina of the small finger. We will proceed with a repeat I&D for a likely horse-shoe abscess. Operative Findings: Murky fluid at the base of the flexor tendon sheath to the small finger. Description of Procedure: The patient, operative extremity, and procedure were identified. Informed consetn was obtained. Patient was brought back and local block was performed. Time out performed. The previous sutures were removed. The carpal tunnel wound was reopened. Pressure along the distal hand produced murky fluid from the SF flexor tendon sheath area. Decision was made to extend the incision to the small finger A1 hina. The A1 hina was released and there was a pocket of fluid around the flexor tendon. A culture was obtained. A small incision was made in the pulp of the small finger and a 14g angiocath was inserted into the distal end of the flexor tendon sheath. 50cc of NS was flushed thorugh the hina system in a retrograde fashion. Fluid always ran clear without any signs of infectious fluid in the runoff. The same was performed for the middle finger. Fluid here ran clear as well. 2L of NS was then used to irrigate the deep space exposed by the palmar wound. Hemostat was used to open the bursa to flush out the passages to the FPL and all flexors to the digits. No further signs of purulence. Tourniquet was let down, hemostasis achieved. Wounds closed with 4.0 nylon and two drains were left to the small finger and the index finger. Wound was dressed with antibiotic ointment, adaptic, gauze, and an kenna wrap.
--- NOTE | 2023-08-23 17:08 | P.OP ---
Date of Procedure: 08/20/23 Preoperative Diagnosis: Right hand purulent flexor tenosynovitis middle finger Postoperative Diagnosis: same Procedure(s) Performed: Right hand and middle finger incision and drainage Anesthesia: MARIBEL local Welder Fitter #1: Jennifer Arellano Condition: stable Disposition: PACU Indications for Procedure: Patient pinched his middle finger in a hunting blind almost a month ago. This past week, the entire hand is swollen and there is drainge from the middle finger wound. He has pain into the carpal tunnel. We will perform I&D for flexor teno likely extending into the carpal tunnel deep space. Operative Findings: Purulence found at the A1 hina of the middle finger and in the carpal tunnel. Description of Procedure: The patient, operative extremity, and procedure were identified in the preop holding area. After informed consent was obtained and he was brought back to the OR where she was placed under general and received a local block. All bony and neurovascular structures were well padded. The upper extremity was then prepped and draped in normal sterile fashion. After timeout was performed, the arm was elevated and the tourniquet inflated. Attention was first turned to the middle finger. The distal wound was at the volar DIP joint and this was explored. FDP insertion was intact but quite frayed. There was murky fluid expressed with forced flexion of the finger. The incision was extended in a vick type fashion. A counter incision was made over the A1 hina. There was murkey fluid again noted as the flexor hina system was accessed. A 16g catheter was inserted from the distal end of the flexor tendon sheath. 50cc of NS was flushed in a retrograde fashion. Fluid ran clear by the last 30 cc's. The same process was repeated in an anterograde fashion. A longitudinal incision was made just proximal to kaplans cardinal line in line with the ring finger. Dissection was carried down through the palmar aponeurosis and the transverse carpal ligament. purulence was noted in the carpal tunnel. culture was obtained. The ligament was released in it's entirety. The incison was extended past the wrist crease and the release was extended into the forearm fascia. The carpal tunnel was copiously irrigated with normal saline. Fluid was flushed anterograde and retrograde through the connection with the middle finger flexor tendon sheath. The tourniquet was let down. Hemostasis achieved, wounds were closed with 4.0 nylon suture. Wounds were dressed with a soft dressing.
[2023-08-24] MEDS: SODIUM CHLORIDE 0.9% 1,000 ML IV SCH ×2 (02:12→13:04)
--- NOTE | 2023-08-24 06:22 | IR ---
EXAMINATION TYPE: IR cvc insert >=5 years DATE OF EXAM: 08/23/2023 CLINICAL HISTORY: Antibiotic use TECHNIQUE: Fluoroscopy. COMPARISON: None. FINDINGS: Fluoroscopic guidance was provided during PICC line insertion procedure performed by Dr. Erma delgado. A total of 24 seconds of fluoroscopic time was utilized during the procedure and 131 spot im ages was acquired. TOTAL DAP = 0.471 Gy x cm2. IMPRESSION: As Above.
[2023-08-24 08:30] VITALS: RESP 18
--- NOTE | 2023-08-24 10:21 | P.PN ---
Subjective Progress Note Date: 08/24/23 Principal diagnosis: Status post right hand I&D This is a 57 year-old male post right hand I&D x2 This is post-op day 1 after the 2nd surgery. The patient was evaluated at the bedside today. The patient denies nausea, vomiting, abdominal pain, chest pain, or shortness of breath this morning. He states the hand is feeling better. PICC line was placed yesterday. Objective - Vital Signs Vital signs: Vital Signs Temp 97.6 F 08/24/23 08:00 Pulse 77 08/24/23 08:00 Resp 18 08/24/23 08:00 BP 129/76 08/24/23 08:00 Pulse Ox 95 08/24/23 08:00 FiO2 Intake & Output 08/23/23 08/24/23 08/24/23 18:59 06:59 18:59 Intake Total 1025 590 Output Total 405 Balance 620 590 Weight 70.307 kg Intake: IV 975 Intake, IV Titration 50 Amount cefTRIAXone 2 gm In 50 Sodium Chloride 0.9% 50 ml @ 100 mls/hr IVPB Q24HR [facility] Rx#:[id number] Oral 590 Output: Urine 400 Estimated Blood Loss 5 Other: Voiding Method Toilet Toilet # Voids 2 - Exam The incisions are stable. Sutures are present. Newberry drains removed today. Exam demonstrates normal wound healing with no signs of infection. Swelling is also as expected and is not excessive. Neurovascular exam is normal. - Labs CBC & Chem 7: 08/23/23 12:05 08/23/23 12:05 Labs: Abnormal Lab Results - Last 24 Hours (Table) 08/23/23 08/23/23 Range/Units 12:05 12:05 RBC 3.62 L (4.30-5.90) m/uL Hgb 11.4 L (13.0-17.5) gm/dL Hct 34.2 L (39.0-53.0) % Carbon Dioxide 19.6 L (21.6-31.8) mmol/L Anion Gap 14.40 H (4.00-12.00) mmol/L BUN 8.4 L (9.0-27.0) mg/dL Total Protein 5.5 L (6.2-8.2) g/dL Albumin 3.3 L (3.8-4.9) g/dL Albumin/Globulin Ratio 1.50 L (1.60-3.17) Ratio Microbiology - Last 24 Hours (Table) 08/23/23 14:41 Gram Stain - Preliminary Finger - Right Fifth Wound Culture - Preliminary 08/20/23 13:09 Anaerobic Culture - Final Finger - Right Third Anaerobic Gram Positive Cocci Anaerobic Gm Negative Bacilli 08/18/23 12:16 Blood Culture - Final Blood 08/18/23 12:16 Blood Culture - Final Blood Assessment and Plan (1) Abscess of finger of right hand Current Visit: Yes Status: Acute Code(s): L02.511 - CUTANEOUS ABSCESS OF RIGHT HAND SNOMED Code(s): 67789204748361176 (2) Cellulitis of right hand Current Visit: Yes Status: Acute Code(s): L03.113 - CELLULITIS OF RIGHT UPP ER LIMB SNOMED Code(s): 51892699692456020 (3) Group C streptococcal infection Current Visit: Yes Status: Acute Code(s): A49.1 - STREPTOCOCCAL INFECTION, UNSPECIFIED SITE SNOMED Code(s): 214309282 Plan: The clinical and operative findings were discussed with the patient. The wounds are stable and dressing changed today. He may discharge home today after antibiotics are set up. Local wound care was discussed. He is orthopedically stable for discharge home today. The patient will follow up in 1 week in the office.
--- NOTE | 2023-08-24 11:59 | P.PN ---
Subjective Progress Note Date: 08/24/23 Principal diagnosis: Reason for follow-up is right middle finger abscess and hand cellulitis Patient is a 57-year-old male with a past medical history Significant for pneumonia current everyday smoker patient apparently did develop an injury to the right middle finger when he was trying to climb a tree while out hunting , patient now presented to hospital with worsening swelling redness to the right hand and right middle finger.Patient is status post I&D of the palmar aspect of the right hand and wrist by orthopedic surgery completed on 08/20/2023.Patient was taken back to the OR on 08/23/2022 this patient is status post right hand and middle finger I&D for purulent tenosynovitis middle finger patient tolerated the procedure. On today's evaluation that is 08/24/2023, the patient denies having any fever or any chills, the patient is breathing comfortably on room air no chest pain shortness of the cough no nausea vomiting no abdominal pain and pain to the right hand is controlled. Patient did have white count of 9.2 creatinine 0.6 as of yesterday no lab draw today Objective - Vital Signs Vital signs: Vital Signs Temp 97.6 F 08/24/23 08:00 Pulse 77 08/24/23 08:00 Resp 18 08/24/23 08:00 BP 129/76 08/24/23 08:00 Pulse Ox 95 08/24/23 08:00 FiO2 Intake & Output 08/23/23 08/24/23 08/24/23 18:59 06:59 18:59 Intake Total 1025 590 Output Total 405 Balance 620 590 Weight 70.307 kg Intake: IV 975 Intake, IV Titration 50 Amount cefTRIAXone 2 gm In 50 Sodium Chloride 0.9% 50 ml @ 100 mls/hr IVPB Q24HR [facility] Rx#:[id number] Oral 590 Output: Urine 400 Estimated Blood Loss 5 Other: Voiding Method Toilet Toilet Toilet # Voids 2 - Exam GENERAL DESCRIPTION: Middle-age male lying in bed in no distress RESPIRATORY SYSTEM: Unlabored breathing , decreased breath sounds at bases HEART: S1 S2 regular rate and rhythm , ABDOMEN: Soft , no tenderness EXTREMITIES: Right hand is currently covered in OR dressing no drainage on the dressing - Labs CBC & Chem 7: 08/23/23 12:05 08/23/23 12:05 Labs: Abnormal Lab Results - Last 24 Hours (Table) 08/23/23 08/23/23 Range/Units 12:05 12:05 RBC 3.62 L (4.30-5.90) m/uL Hgb 11.4 L (13.0-17.5) gm/dL Hct 34.2 L (39.0-53.0) % Carbon Dioxide 19.6 L (21.6-31.8) mmol/L Anion Gap 14.40 H (4.00-12.00) mmol/L BUN 8.4 L (9.0-27.0) mg/dL Total Protein 5.5 L (6.2-8.2) g/dL Albumin 3.3 L (3.8-4.9) g/dL Albumin/Globulin Ratio 1.50 L (1.60-3.17) Ratio Microbiology - Last 24 Hours (Table) 08/18/23 18:00 Anaerobic Culture - Final Finger - Right Third Anaerobic Gm Negative Bacilli Anaerobic Gm Negative Bacilli#2 08/23/23 14:41 Gram Stain - Preliminary Finger - Right Fifth Wound Culture - Preliminary 08/20/23 13:09 Anaerobic Culture - Final Finger - Right Third Anaerobic Gram Positive Cocci Anaerobic Gm Negative Bacilli 08/18/23 12:16 Blood Culture - Final Blood 08/18/23 12:16 Blood Culture - Final Blood Assessment and Plan (1) Abscess of finger of right hand Current Visit: Yes Status: Acute Code(s): L02.511 - CUTANEOUS ABSCESS OF RIGHT HAND SNOMED Code(s): 68336013374246682 (2) Cellulitis of right hand Current Visit: Yes Status: Acute Code(s): L03.113 - CELLULITIS OF RIGHT UPPER LIMB SNOMED Code(s): 21432418589610971 (3) Group C streptococcal infection Current Visit: Yes Status: Acute Code(s): A49.1 - STREPTOCOCCAL INFECTION, UNSPECIFIED SITE SNOMED Code(s): 682327768 Plan: 1-patient presented to hospital with increasing pain swelling redness to the right middle finger in this patient was noticed to have a purulent drainage from a small puncture wound on the middle phalanx of the right middle finger on the palmar aspect with some foul-smelling drainage concerning for possible polymicrobial abscess 2-Patient is status post surgical drainage of the right hand and wrist abscess by orthopedics on 08/20/2023 with cultures currently pending right middle finger culture grew group C strep. 3PICC line has been placed plan is for Rocephin 2 g daily along with oral Flagyl x 4 weeks With evidence of purulent flexor tenosynovitis on last operative report,on discharge and close outpatient follow-up multiple questions concern answered Dictation was produced using [employer] software. please excuse any grammatical, word or spelling errors. Time with Patient: Less than 30
[2023-08-24] MEDS ORDERED: metroNIDAZOLE 500 MG TAB PO SCH (12:00)
[2023-08-24 12:54] VITALS: BMI 21.6
[2023-08-24 14:31] VITALS: BP 161/79; PULSE 72; TEMP 97.7
--- NOTE | 2023-08-30 20:42 | CDI ---
Documentation Clarification Form Date: 08/30/2023 From: Mary Romero Admit Date: 08/18/2023 12:55:00 PM Patient Name: Dustin Nolasco Visit Number: [id number] Discharge Date: 08/24/2023 04:24:00 PM ATTENTION: The Clinical Documentation Specialists (CDI) and [facility] Coding Staff appreciate your assistance in clarifying documentation. Please respond to the clarification below the line at the bottom and electronically sign. The CDI & [facility] Coding staff will review the response and follow-up if needed. Please note: Queries are made part of the Legal Health Record. If you have any questions, please contact the author of this message via ITS. Dr. Melgoza E Sheet The patient has cellulitis, elevated heart rate, leukocytosis and a fever. Based on this information and the findings below, is there an additional diagnosis that is clinically appropriate for this patient? History/Risk Factors: 57yo presented with R hand cellulitis, edema, erythema extending up the right arm. Per the ER record, the pt reported that he was seen on 08/17 in the ER for the hand wound and was sent home on antibiotics. Clinical Indicators: Ortho PN on 08/20 noted possible flexor tenosynovitis right hand, middle finger. Pt underwent and I&D of the R hand, middle finger for right hand purulent flexor tenosynovitis middle finger WBC: 08/18 21.8, 08/19 15.0, 08/21 8.8 ESR 08/19: 91 CRP 08/19: 21.9 Wound culture 08/20: Beta Hemolytic Strep Group C Vitals signs: 08/18 @ 0659 temp 98.3, HR 112, RR 20, BP 150/73 08/18 @ 1856 temp 100.1, HR 78, RR 18, BP 115/66 Treatment: Cefepime IV, Vanco IV, Cefazolin irrigation of hand, Flagyl po, IV fluid Is there an additional diagnosis that is clinically appropriate for this patient? [ x ] Sepsis, present on admission (fever and leukocytosis) [ ] No systemic response to cellulitis and tenosynovitis noted [ ] Other, please specify [ ] Unable to determine SIRS Criteria: 2 or more of the following may indicate SIRS Temperature < 96.8F (36C) or > 101.0F (38.3C) Heart Rate > 90 bpm Respiratory Rate > 20 breaths/min or PaCO2 < 32 mmHg White Blood Cell Count > 12,000 or < 4,000 cells/mm3 or > 10% bands (Template Last Reviewed: August 2022) [facility]
--- NOTE | 2023-08-31 17:00 | P.DS ---
Providers Date of admission: 08/18/23 12:55 Attending physician: Abad Thompson MD Consults: 08/18/23 13:10 Consult Physician Routine Consulting Provider: Mary Kay Epperson Consult Reason/Comments: Cellulitis Do you want consulting provider notified?: Yes Consult Physician Routine Consulting Provider: Jennifer Arellano Consult Reason/Comments: Right hand cellulitis Do you want consulting provider notified?: Yes Primary care physician: Stated None Hospital Course: Diagnoses: Right hand and forearm cellulitis, status post I&D on 08/20 sepsis with fever and leukocytosis, present on admission, improved Nicotine dependence Hospital course: This is a pleasant 57 years old male with no significant past medical history and he does not follow with PCP. He presents with redness and swelling of his right hand. Patient was found to have right hand cellulitis and right forearm cellulitis. He was treated with IV antibiotics with cefepime and IV vancomycin which is changed later to IV Unasyn. Patient's was evaluated by infectious disease team and orthopedic team who underwent I&D and debridement of his infected wound twice, patient showed interval improvement. No other new complaints and his right home on swelling improving. Patient evaluated by PT and OT and he is going to follow-up. Patient still in the process of feeling not completely resolved and he can follow treatment as an outpatient. Patient was cleared for discharge by both IV and orthopedic team. Patient will be discharged on Rocephin and Flagyl per ID team. Problems and management plan were discussed with the patient and he verbalized understanding and acceptance Patient was found stable and can be discharged home in guarded prognosis however he needs follow-up as an outpatient. Patient was instructed to follow up with PCP within one week and patient agrees Patient was instructed to follow-up with Dr. Epperson in 1 week after discharge and he agrees patient was instructed to follow up with Dr. Arellano orthopedic in 1 week after discharge and he agrees as well Physical exam Gen: patient is a AAOx3, no distress CVS: S1-S2, RRR, no murmur Lungs: B/L CTA, no wheezing Abdomen: soft, no distention, no tenderness, positive bowel sounds -Extremity: no leg edema or induration. Right-handed and dressing, improving Time spent more than 35 minutes Patient Condition at Discharge: Fair Plan - Discharge Summary Discharge Rx Participant: Yes New Discharge Prescriptions: New cefTRIAXone [Rocephin] 2,000 mg IVP Q24HR #15 each Ondansetron [Zofran] 4 mg PO Q8HR PRN 3 Days #12 tab PRN Reason: Nausea metroNIDAZOLE [Flagyl] 500 mg PO TID #45 tab Sennosides-Docusate Sodium [Senokot-S] 2 each PO HS PRN 10 Days #20 tab PRN Reason: Constipation Acetaminophen Tab [Tylenol] 650 mg PO Q6HR PRN tab PRN Reason: Fever And/ Or Pain Discontinued clindamycin HCL 300 mg PO QID #40 cap Discharge Medication List cefTRIAXone [Rocephin] 2,000 mg IVP Q24HR #15 each 08/23/23 [Rx] metroNIDAZOLE [Flagyl] 500 mg PO TID #45 tab 08/23/23 [Rx] Acetaminophen Tab [Tylenol] 650 mg PO Q6HR PRN tab 08/24/23 [Rx] Ondansetron [Zofran] 4 mg PO Q8HR PRN 3 Days #12 tab 08/24/23 [Rx] Sennosides-Docusate Sodium [Senokot-S] 2 each PO HS PRN 10 Days #20 tab 08/24/23 [Rx] Follow up Appointment(s)/Referral(s): [facility],[place] [NON-STAFF] - 1 Week Jennifer Arellano DO [Doctor of Osteopathic Medicine] - 08/29/23 9:35 am [facility] [NON-STAFF] - 1 Week None,Stated [Primary Care Provider] - 1-2 days Mary Kay Epperson MD [STAFF PHYSICIAN] - 09/07/23 3:15 pm (Your second appointment will be on 09/19/23 at 1:45) Patient Instructions/Handouts: Laxative, Stimulant (By mouth), Metronidazole (By mouth), Ondansetron (By mouth), Ceftriaxone (By injection), Cellulitis (GEN), How to Care for Your PICC (Peripherally Inserted Central Catheter) (ED) Activity/Diet/Wound Care/Special Instructions: May cleanse the right hand in the shower or sink at least daily. Cover with nonstick dressing. Continue to work on finger motion as tolerated. Antibiotics per infectious disease Follow up with Dr. Jennifer Arellano in 1 week. we recommend you contact your health insurance provider to find out a nearby primary care doctor ,please call to make appointment in one week activity is restricted till you see your doctor heart healthy diet Discharge Disposition: HOME WITH HOME HEALTH SERVICES
== END 2023-08-24 16:24 | disposition home health service (06) | DRG 872 ==
LOC: EC 06:52 → 5NMEDONC 12:55
PROVIDERS: ADMIT Internal Medicine; ATTEND Internal Medicine
PROC: 0J9J0ZZ Drainage of Right Hand Subcutaneous Tissue and Fascia, Open Approach (ICD-10-PCS; 2023-08-23)
PROC: 0X9J0ZZ Drainage of Right Hand, Open Approach (ICD-10-PCS; 2023-08-23)
PROC: 05HY33Z Insertion of Infusion Device into Upper Vein, Percutaneous Approach (ICD-10-PCS; principal; 2023-08-23 07:30)
DX: A41.9 Sepsis, unspecified organism (principal); L03.113 Cellulitis of right upper limb; L02.511 Cutaneous abscess of right hand; K61.31 Horseshoe abscess; F17.210 Nicotine dependence, cigarettes, uncomplicated; M65.141 Other infective (teno)synovitis, right hand; B95.4 Other streptococcus as the cause of diseases classified elsewhere
CPT/HCPCS: 36415; 36573; 80053; 80202; 82565; 83605; 85025; 85027; 85610; 85652; 86140; 87040; 87070; 87075; 87205; 96365; 96366; 99285